=== PATIENT | male | born 1935 | race Caucasian/White ===

== ENCOUNTER 2018-12-11 18:15 | Emergency (ER) | payer MEDICARE, OTHER ==
[~2018-12-11] VITALS: Ht 175.3 cm; Wt 87.5 kg
[~2018-12-11 18:15] MED LIST: FLUSAL5005 INH; FURO20 PO; LOSA50 PO; PROSTEON TABLE1 EACH PO; TIOT18 INH; WARF2.5 PO
[2018-12-11] MEDS ORDERED: ALBU90OI61 INH (19:48)
[2018-12-11] MEDS ORDERED: ALBU2.5V5 NEB (19:48)
[2018-12-11] MEDS ORDERED: BENZ100A PO (19:50)
[2018-12-11] MEDS ORDERED: Diabetic Tussi118 ML PO (19:52)
[2018-12-11] MEDS ORDERED: AQUAPHOR99 GM TOP (19:53)
[2018-12-11] MEDS ORDERED: LOSARTAN POTAS100 MG PO (19:54)
[2018-12-11] MEDS ORDERED: MONT10T PO (19:54)
[2018-12-11] MEDS ORDERED: XARELTO15 MG PO (19:55)
[2018-12-11] MEDS ORDERED: STIOLTO RESPIMAT4 GM INH (19:56)
[2018-12-11] MEDS ORDERED: Augmentin 875-1 EACH PO (21:32)
== END 2018-12-11 21:59 | disposition home or self-care (01) ==
LOC: ER 18:15
DX: J18.1 Lobar pneumonia, unspecified organism (principal); J44.9 Chronic obstructive pulmonary disease, unspecified; I48.91 Unspecified atrial fibrillation; I10 Essential (primary) hypertension; K21.9 Gastro-esophageal reflux disease without esophagitis; E78.5 Hyperlipidemia, unspecified; Z86.711 Personal history of pulmonary embolism; G47.33 Obstructive sleep apnea (adult) (pediatric); Z79.899 Other long term (current) drug therapy
CPT/HCPCS: 71260; 96361-59; 96365-59; 99285-25; J0696; J7030; Q9967

== ENCOUNTER 2019-07-26 09:01 | Inpatient (IN) | payer OTHER, MEDICARE ==
[~2019-07-26] VITALS: Ht 177.8 cm; Wt 86.5 kg
[~2019-07-26 09:01] MED LIST changes: +ALBU2.5V5 NEB; +ALBU90OI61 INH; +AQUAPHOR99 GM TOP; +Augmentin 875-1 EACH PO; +BENZ100A PO; +Diabetic Tussi118 ML PO; +LOSARTAN POTAS100 MG PO; +MONT10T PO; +STIOLTO RESPIMAT4 GM INH; +XARELTO15 MG PO
[2019-07-26 10:00] LABS: BASOPHILS ABSOLUTE AUTO 0.05 K/mm3 (0.00-0.23); BASOPHILS PERCENT AUTO 0 % (0-2); EOSINOPHILS ABSOLUTE AUTO 0.28 K/mm3 (0.00-0.68); EOSINOPHILS PERCENT AUTO 2 % (0-6); Hematocrit 46.8 % (37.0-53.0); Hemoglobin 14.7 g/dL (13.5-17.5); IMMATURE GRAN ABSOLUTE AUTO 0.07 K/mm3 (0.00-0.10); IMMATURE GRAN PERCENT AUTO 1 % (0-1); LYMPHOCYTES ABSOLUTE AUTO 1.21 K/mm3 (0.84-5.20); LYMPHOCYTES PERCENT AUTO 8 % (21-46); MONOCYTES ABSOLUTE AUTO 1.72 K/mm3 (0.16-1.47); MONOCYTES PERCENT AUTO 12 % (4-13); Mean Corpuscular HGB 29.6 pg (26.0-34.0); Mean Corpuscular HGB Conc 31.4 g/dL (31.5-36.5); Mean Corpuscular Volume 94 fL (80-100); Mean Platelet Volume 9.9 fL (9.1-12.4); NEUTROPHILS PERCENT AUTO 77 % (41-73); Platelet Count 208 K/mm3 (150-400); RDW Coefficient Variation 15.3 % (11.7-14.2); RDW Standard Deviation 53.8 fL (35.1-46.3); Red Blood Cell Count 4.96 M/mm3 (4.30-5.90); White Blood Cell Count 14.73 K/mm3 (4.00-11.30)
[2019-07-26 10:01] LABS: Alanine Aminotransfer (ALT/SGP 28 U/L (12-78); Albumin, Blood 3.6 g/dL (3.4-5.0); Alk Phos 71 U/L (50-136); Anion Gap 6 mmol/L (6-16); Aspartate Aminotrans (AST/SGOT 23 U/L (12-37); Bilirubin, Total 1.4 mg/dL (0.1-1.0); Blood Urea Nitrogen 20 mg/dL (8-24); Bun/Creatinine Ratio 17.9 (12.0-20.0); CO2, Blood 25 mmol/L (21-32); Calcium, Blood 9.1 mg/dL (8.5-10.1); Chloride, Blood 106 mmol/L (98-108); Creatinine, Blood 1.12 mg/dL (0.60-1.20); Globulin, Blood 3.5 g/dL (2.2-4.0); Glomerular Filtration Rate >60 (60-); Glucose, Blood 97 mg/dL (70-99); Potassium, Blood 4.3 mmol/L (3.5-5.5); Sodium, Blood 137 mmol/L (136-145); Total Protein, Blood 7.1 g/dL (6.4-8.2); Troponin I <0.015 ng/mL (0.000-0.040)
[2019-07-26] MEDS ORDERED: LOSARTAN POTASS25 M2 PO (11:42)
--- NOTE | 2019-07-26 14:10 | NUR ---
PT ARRIVAL... PT ARRIVED TO UNIT VIA GURNEY. PT WAS ADMITTED FOR COPD EXAC. PT IS ON 4L NC WITH O2 SATS >91%, THIS IS PT'S BASELINE PER . PT'S VS STABLE AT THIS TIME. PT'S L/S COARSE, MOIST W/WHEEZES T/O. RR 22-24, W/ACCESSORY MUSCLE USE, PT BECOMES DYSPNIC WITH ACTIVITY. NO EDEMA IS NOTED ON ASSESSMENT. BT PRESENT AND NORMOACTIVE,ABD IS FIRM BUT NONTENDER TO PALP. IS AT THE BEDSIDE, PT HAS DEMENTIA, BED ALARM IS ON. CALL LIGHT IN REACH, WILL CONTINUE TO MONITOR.
[2019-07-26 16:34] LABS: Adenovirus Not Detected (NOT DETECT); Bordetella pertussis Not Detected (NOT DETECT); Chlamydophila pneumoniae Not Detected (NOT DETECT); Coronavirus 229E Not Detected (NOT DETECT); Coronavirus HKU1 Not Detected (NOT DETECT); Coronavirus NL63 Not Detected (NOT DETECT); Coronavirus OC43 Not Detected (NOT DETECT); Human Metapneumovirus Not Detected (NOT DETECT); Human Rhinovirus/Enterovirus Not Detected (NOT DETECT); Influenza A Not Detected (NOT DETECT); Influenza A/2009-H1 Not Detected (NOT DETECT); Influenza A/H1 Not Detected (NOT DETECT); Influenza A/H3 Not Detected (NOT DETECT); Influenza B Not Detected (NOT DETECT); Mycoplasma pneumoniae Not Detected (NOT DETECT); Parainfluenza Virus 1 Not Detected (NOT DETECT); Parainfluenza Virus 2 Not Detected (NOT DETECT); Parainfluenza Virus 3 Not Detected (NOT DETECT); Parainfluenza Virus 4 Not Detected (NOT DETECT); Respiratory Syncytial Virus Not Detected (NOT DETECT)
[2019-07-27 03:50] LABS: BASOPHILS ABSOLUTE AUTO 0.01 K/mm3 (0.00-0.23); BASOPHILS PERCENT AUTO 0 % (0-2); EOSINOPHILS PERCENT AUTO 0 % (0-6); Hematocrit 46.1 % (37.0-53.0); Hemoglobin 14.8 g/dL (13.5-17.5); IMMATURE GRAN ABSOLUTE AUTO 0.03 K/mm3 (0.00-0.10); IMMATURE GRAN PERCENT AUTO 0 % (0-1); LYMPHOCYTES ABSOLUTE AUTO 0.62 K/mm3 (0.84-5.20); LYMPHOCYTES PERCENT AUTO 8 % (21-46); MONOCYTES ABSOLUTE AUTO 0.13 K/mm3 (0.16-1.47); MONOCYTES PERCENT AUTO 2 % (4-13); Mean Corpuscular HGB 29.9 pg (26.0-34.0); Mean Corpuscular HGB Conc 32.1 g/dL (31.5-36.5); Mean Corpuscular Volume 93 fL (80-100); Mean Platelet Volume 9.8 fL (9.1-12.4); NEUTROPHILS ABSOLUTE AUTO 7.49 K/mm3 (1.96-9.15); NEUTROPHILS PERCENT AUTO 90 % (41-73); Platelet Count 189 K/mm3 (150-400); RDW Coefficient Variation 15.1 % (11.7-14.2); RDW Standard Deviation 51.6 fL (35.1-46.3); Red Blood Cell Count 4.95 M/mm3 (4.30-5.90); White Blood Cell Count 8.28 K/mm3 (4.00-11.30)
[2019-07-27 04:19] LABS: Alanine Aminotransfer (ALT/SGP 27 U/L (12-78); Albumin, Blood 3.3 g/dL (3.4-5.0); Alk Phos 65 U/L (50-136); Anion Gap 8 mmol/L (6-16); Aspartate Aminotrans (AST/SGOT 19 U/L (12-37); Bilirubin, Total 0.8 mg/dL (0.1-1.0); Blood Urea Nitrogen 25 mg/dL (8-24); Bun/Creatinine Ratio 28.5 (12.0-20.0); CO2, Blood 22 mmol/L (21-32); Calcium, Blood 8.5 mg/dL (8.5-10.1); Chloride, Blood 108 mmol/L (98-108); Creatinine, Blood 0.88 mg/dL (0.60-1.20); Globulin, Blood 3.4 g/dL (2.2-4.0); Glomerular Filtration Rate >60 (60-); Glucose, Blood 155 mg/dL (70-99); Magnesium, Blood 2.2 mg/dL (1.6-2.4); Potassium, Blood 4.4 mmol/L (3.5-5.5); Sodium, Blood 138 mmol/L (136-145); Total Protein, Blood 6.7 g/dL (6.4-8.2)
--- NOTE | 2019-07-27 06:55 | NUR ---
SHIFT SUMMARY PT HAS REMAINED ALERT AND ORIENTED TO SELF AND SURROUNDINGS ONLY THROUGHOUT THE NIGHT. PT DISORIENTED TO CURRENT DATE/TIME AND EVENT. PT DOES REORIENT WELL AND FOLLOWS DIRECTIONS. VSS. VERY PLEASANT AND COOPERATIVE WITH CARE. O2 SATURSATIONS HAVE REMAINED >90% ON 4L VIA NASAL CANNULA. PT BECOMES VERY DYSPNEIC UPON ANY EXERTION WITH LABORED, TACHYPNEIC RESPIRATIONS- PT CONTINUES TO DENY FEELING SHORT OF BREATH. O2 SATS STAY >90% THROUGH THESE EPISODES. PT CONTINUES TO USE URINAL AT BEDSIDE WITH MUCH PERSUASION TO DO SO. PT REQUESTING TO WALK TO THE RESTROOM, BUT ENCOURAGED TO USE BEDSIDE COMMODE DUE TO RESPIRATORY STATUS. PT IS RELUCTANT, BUT IS COMPLIANT. NO OTHER CHANGES NOTED FROM INITIAL ASSESSMENT. WILL CONTINUE TO MONITOR AND REPORT TO ONCOMING SHIFT RN. BED IN LOW POSITION, CALL LIGHT IN REACH. BED ALARM SET FOR SAFETY.
--- NOTE | 2019-07-27 09:06 | NUR ---
AM NOTE. ASSUMED CARE OF PT APROX 0700. PT IS A&Ox3, STATING HE KNOWS HE IS IN THE HOSPTIAL, KNOWS HE IS SICK, KNOWS HIS BUT NOT THE DATE OR THE PRESIDENT. PT WAS ADMITTED FOR COPD EXAC. PT IS ON 4 L NC WITH O2 SATS >95%, WILL TRY TO TITRATE TO BASELINE. PT DENIES CHEST PAIN/PRESSURE N/V. PT STATES THAT HE FEELS LIKE HIS BREATHING IS "NORMAL" HOWEVER PT'S STATES HE IS NOT. L/S COARSE, RHONCHI AND WHEEZES. BT PRESENT AND NORMOACTIVE. ABD IS SOFT AND NONTENDER TO PALP. CALL LIGHT IN REACH, BED IS LOCKED AND LOW WILL CONTINUE TO MONITOR
--- NOTE | 2019-07-27 17:16 | NUR ---
SHIFT SUMMARY. NO ACUTE NEGATIVE CHANGES NOTED THIS SHIFT. PT'S VS HAVE BEEN STABLE. PT DENIES PAIN. PT HAS BEEN TITRATED FROM 4L NC TO 2 L NC AND 3 W/ACTIVITY. PT'S FAMILY AND SPOUSE AT THE BEDSIDE MOST OF THE DAY. CALL LIGHT IN REACH, BED IS LOCKED AND LOW WILL CONTINUE TO MONITOR UNTIL REPORT IS GIVEN TO ONCOMING RN.
--- NOTE | 2019-07-28 07:12 | NUR ---
SHIFT SUMMARY PT HAS REMAINED ORIENTED TO SELF AND FOLLOWING DIRECTIONS THROUGHOUT THE NIGHT. PT REMAINS DISORIENTED TO DATE/TIME, EVENT AND PLACE. STATES THAT HE THINKS HE IS IN THE HOSPITAL, BUT THAT HE IS IN [place]. PT REORIENTS WELL. VSS. VERY PLEASANT AND COOPERATIVE WITH CARE. O2 SATS HAVE REMAINED >90% ON 2L VIA NASAL CANNULA AT REST AND 4L VIA NASAL CANNULA WITH ACTIVITY. HAS RESTED WELL THROUGHOUT THE NIGHT WITH HOME CPAP IN PLACE WITH 2L BLEED IN. LUNG SOUNDS REMAIN WHEEZY THROUGHOUT WITH DIMINISHED BASES. RESPIRATIONS REMAIN TACHYPNEIC AND LABORED UPON EXERTION. PT CONTINUES TO AMBULATE WITH ONE PERSON ASSIST TO BEDSIDE COMMODE AND CHAIR. NO OTHER CHANGES NOTED FROM INITIAL ASSESSMENT. WILL CONTINUE TO MONITOR AND REPORT TO ONCOMING SHIFT RN. BED IN LOW POSITION, CALL LIGHT IN REACH. BED ALARM SET FOR SAFETY.
--- NOTE | 2019-07-28 08:00 | NUR ---
INITIAL ASSESSMENT PATIENT PLEASANTLY CONFUSED. PATIENT ORIENTED TO SELF, FAMILY AND FOLLOWING DIRECTIONS. PATIENT APACHE. PATIENT FORGETFUL. HX OF DEMENTIA. AFEBRILE. 1 PERSON ASSIST. PATIENT SATTING 90% AND GREATER ON 2 L NC. BASELINE OF 2-3 L NC PER DIRECTOR OF ROTC RN REPORT. LUNGS CLEAR IN UPPER LOBES AND DIMINISHED IN LOWER LOBES. PATIENT REPORTS THAT HE IS COUGHING UP SMALL TO LARGE AMOUNTS OF THICK/ THIN SPUTUM. PATIENT IN A.FIB, HR IN THE 70S. BP STABLE. TRACE EDEMA NOTED TO BLES. ABDOMEN MILDLY DISTENDED, PATIENT REPORTS "NORMAL". ABD. SOFT, NONTENDER WITH NORMAL ACTIVE BS. WNL. SKIN IS FRAGILE AND SCATTERED BRUISES NOTED. IVS FLUSHED AND SALINE LOCKED. PATIENT DENIES PAIN OR DISCOMFORT AT THIS TIME. BED LOW, CALL LIGHT IN REACH, BED ALARM ON. WILL CONTINUE TO MONITOR PATIENT FREQUENTLY THROUGHOUT SHIFT.
--- NOTE | 2019-07-28 12:00 | NUR ---
PATIENT RESTING QUIETLY IN BED. VITAL SIGNS STABLE. NO COMPLAINTS. WILL CONTINUE TO MONITOR.
--- NOTE | 2019-07-28 16:44 | NUR ---
PATIENT RESTING QUIETLY IN BED, VISITING WITH AND FRIEND. NO COMPLAINTS. PATIENT WEARING CPAP. VITAL SIGNS STABLE. NO ACUTE CHANGES TO NOTE ON. WILL CONTINUE TO MONITOR.
--- NOTE | 2019-07-28 17:45 | NUR ---
SHIFT SUMMARY PATIENT REMAINED [place], ORIENTED ONLY TO SELF, FAMILY AND FOLLOWING DIRECTIONS. PATIENT FORGETFUL. HX OF DEMENTIA. PATIENT HAD TMAX OF 99.2 DEGREES FAHRENHEIT. PATIENT 1 PERSON ASSIST. PATIENT REMAINED SATTING 90% AND GREATER ON EITHER 2 L NC OR CPAP. PATIENT REMAINED IN A.FIB, HR 60S TO 80S. BP REMAINED STABLE. PATIENT HAD GOOD APPETITE. WNL. NO CHANGE TO SKIN. PATIENT REPOSITIONED SELF WITH REMINDERS. IVS SALINE LOCKED. PATIENT HAS NO COMPLAINTS AT THIS TIME. FAMILY IS IN ROOM VISITING FOR [place]. BED LOW, CALL LIGHT IN REACH, BED ALARM ON. WILL CONTINUE TO MONITOR UNTIL REPORT GIVEN TO ONCOMING CREAM HAULER NURSE SHORTLY.
--- NOTE | 2019-07-28 19:39 | NUR ---
alert to self and surronding but easily confused and forgetful, call light in reach, bed in low position, vsmary, stanley, handed phone from table infront of him. [place], using cpap 15 settings from home, afib 106 per pmt, will treat and medicate as prescribe
--- NOTE | 2019-07-28 23:59 | NUR ---
still confused/forgetful/cooperative keeps trying to turn off the oximizer alarm with the tv controller, continues to dstat w activity even while on cpap, declined assist w bathroom promised to call, alarm still on bed, vss, will continue to monitor and treat, no significant changes noted in medical status
--- NOTE | 2019-07-29 04:39 | NUR ---
continues to disconnect oximeter cord, reconnected and calmed pt back to sleep, bed in low position, head at desired level, will continue to monitor, treat and assist
--- NOTE | 2019-07-29 06:38 | NUR ---
remains alert at base line, very excitable/forgetful, woke up this am and was pulling his gown and everything off because he had to got to the bathroom, calmed him down and assisted him to the bsc, then helped reconnect everything currently resting quietly in bed post early am med pass, call light in reach, bed in low position, all IV's locked, remains sob upon exertion, multiple times alarm went off but most alarms r/pt moving and disconnecting oximeter, call light in reach, will continue to monitor and treat until share [facility] staff and pt
--- NOTE | 2019-07-29 12:30 | NUR ---
TRANSFER OF CARE REPORT GIVEN TO ANNE MARIE CHAPIN.
--- NOTE | 2019-07-29 12:45 | NUR ---
ASSUMED PT CARE FROM ANGELLA KENNEY
--- NOTE | 2019-07-29 15:53 | NUR ---
report to simón azar on medical floor
--- NOTE | 2019-07-29 16:13 | NUR ---
patient arrived via w/c. alert and oriented with staff. joking with staff. transfered to bed, 1 person assist. no acute issues noted.
--- NOTE | 2019-07-29 17:53 | NUR ---
SHIFT SUMMARY AT THIS TIME PATIENT IS FORGETFUL OF SAFETY AWARENESS, REORIENTS EASILY. CONVERSIVE WITH STAFF THOUGH DIFFICULT TO UNDERSTAND DUE TO MUMBLING. RT IN ROOM HELPING SET UP CPAP AND PULSE OX. ABLE TO MAKE HIS NEEDS KNOWN. DOES NOT USE CALL LIGHT, YELLS OUT FOR ASSISTANCE.
--- NOTE | 2019-07-30 04:09 | NUR ---
Shift Summary Patient slept well overnight. He wore his CPAP and maintained O2 sats without issue. He did set off his alarm twice attempting to go to the bathroom without assistance. He is somewhat forgetful, but answers orientation questions correctly except for his specific situation/medical diagnosis.
--- NOTE | 2019-07-30 13:19 | NUR ---
PATIENT RECIEVING BREATHING TREATMENTS. UP AT EDGE OF BED PLAYING CARDS. BREATHING TREATMENT AT THIS TIME.
--- NOTE | 2019-07-30 17:10 | NUR ---
SHIFT SUMMARY THIS NURSE ASSUMED CARE AT ABOUT 1600. PT SITTING UP AT SIDE OF BED PLAYING SOLITARE. PT DENIES PAIN, SOB AND NV. VSS. BED IN LOW POSITION, CALL LIGHT WITHIN REACH.
--- NOTE | 2019-07-31 04:23 | NUR ---
Shift Summary Patient slept a fair amount overnight. He has been somewhat forgetful, and he did attempt to walk to the bathroom without assistance. He denied SOB and maintained O2 sats in the low 90's on home cpap.
[2019-07-31] MEDS ORDERED: GUAI600T33 PO (14:37)
[2019-07-31] MEDS ORDERED: AZIT500 PO (14:38)
[2019-07-31] MEDS ORDERED: PRED20 PO (14:38)
[2019-07-31] MEDS ORDERED: FAMO20 PO (14:38)
--- NOTE | 2019-07-31 14:54 | NUR ---
SHIFT SUMMARY PT AWAKE DURING SHIFT REPORT THIS AM. VERY PLEASANT AND TALKATIVE, WANTING TO GO HOME. PT OOB, SETTING BED ALARM OFF GOING TO BTHRM. PT 1P SBA, NONCOMPLIANT WITH CALL LT. PT IS UNSTEADY AND REFUSES TO USE FWW. FAMILY IN TO SEE PT TODAY, WAITING FOR DR ROGER. FAMILY REPORTED PT HAS DEMENTIA AND IS STUBBORN. PLEASANT, BUT INSISTS ON DOING THINGS HIS WAY. PT'S BIOX WNL'S ON 2.5L O2. DR ROGER IN TO SEE PT, D/C ORDERS PLACED. PT'S SON REMAINED IN RM AND ASSISTED PT WITH D/C PAPERS AND BELONGINGS. PT ASSISTED TO SON'S CAR VIA W/C AND GENERAL FOREMAN. PT VERY ANXIOUS AND GRATEFUL TO GET TO GO HOME. MEDS FAXED TO [facility] PER SON AND PT REQUEST FOR TODAY. PT TO F/U AT [facility] IN 1 WEEK; VERBALIZED UNDERSTANDING.
--- NOTE | 2019-08-02 12:58 | NUR ---
requested advance directive from [place] none on file.
== END 2019-07-31 14:54 | disposition home or self-care (01) | DRG 871 ==
LOC: ER 09:01 → PCU 12:05 → MEDS 07-29 16:07
PROVIDERS: Emergency Medicine; Nurse Practitioner Acute Care; ADMIT Family Medicine
DX: A41.9 Sepsis, unspecified organism (principal); J18.9 Pneumonia, unspecified organism; J96.21 Acute and chronic respiratory failure with hypoxia; J44.0 Chronic obstructive pulmonary disease with (acute) lower respiratory infection; J44.1 Chronic obstructive pulmonary disease with (acute) exacerbation; Z99.81 Dependence on supplemental oxygen; I48.91 Unspecified atrial fibrillation; Z79.01 Long term (current) use of anticoagulants; F03.90 Unspecified dementia, unspecified severity, without behavioral disturbance, psychotic disturbance, mood disturbance, and anxiety; Z86.711 Personal history of pulmonary embolism; Z85.46 Personal history of malignant neoplasm of prostate; K21.9 Gastro-esophageal reflux disease without esophagitis; E78.5 Hyperlipidemia, unspecified; G47.33 Obstructive sleep apnea (adult) (pediatric)
CPT/HCPCS: 0099U; 36415; 71046; 80053; 83605; 83735; 83880; 84145; 84484; 85025; 87040; 93005; 93010; 94640; 94644; 94760; 94762; 96365; 97110; 97116; 97161; 97165; 97530; 97535; 99285-25; A9270; J0456; J0696; J2920; J2930; J7030; J7050; J7512

== ENCOUNTER 2019-09-08 10:32 | Inpatient (IN) | payer OTHER, MEDICARE ==
[~2019-09-08] VITALS: Ht 165.1 cm; Wt 90.7 kg
[~2019-09-08 10:32] MED LIST changes: +AZIT500 PO; +FAMO20 PO; +GUAI600T33 PO; +LOSARTAN POTASS25 M2 PO; +PRED20 PO; -XARELTO15 MG PO; +XARELTO20 MG PO
[2019-09-08 11:09] LABS: Base Excess Venous 2.2 mmol/L; Bicarbonate Venous 25.3 mmol/L (24.0-30.0); PCO2 Venous 47.1 mmHg (38-42); PO2 Venous 48.2 mmHg (38-42); pH Blood Venous 7.37 (7.34-7.37)
[2019-09-08 11:28] LABS: BASOPHILS ABSOLUTE AUTO 0.03 K/mm3 (0.00-0.23); BASOPHILS PERCENT AUTO 1 % (0-2); EOSINOPHILS ABSOLUTE AUTO 0.04 K/mm3 (0.00-0.68); EOSINOPHILS PERCENT AUTO 1 % (0-6); Hematocrit 47.9 % (37.0-53.0); Hemoglobin 15.2 g/dL (13.5-17.5); IMMATURE GRAN ABSOLUTE AUTO 0.02 K/mm3 (0.00-0.10); IMMATURE GRAN PERCENT AUTO 0 % (0-1); LYMPHOCYTES ABSOLUTE AUTO 0.47 K/mm3 (0.84-5.20); LYMPHOCYTES PERCENT AUTO 7 % (21-46); MONOCYTES ABSOLUTE AUTO 1.21 K/mm3 (0.16-1.47); MONOCYTES PERCENT AUTO 19 % (4-13); Mean Corpuscular HGB 29.4 pg (26.0-34.0); Mean Corpuscular HGB Conc 31.7 g/dL (31.5-36.5); Mean Corpuscular Volume 93 fL (80-100); Mean Platelet Volume 10.2 fL (9.1-12.4); NEUTROPHILS ABSOLUTE AUTO 4.71 K/mm3 (1.96-9.15); NEUTROPHILS PERCENT AUTO 73 % (41-73); Platelet Count 159 K/mm3 (150-400); RDW Coefficient Variation 15.7 % (11.7-14.2); RDW Standard Deviation 53.9 fL (35.1-46.3); Red Blood Cell Count 5.17 M/mm3 (4.30-5.90); White Blood Cell Count 6.48 K/mm3 (4.00-11.30)
[2019-09-08 11:41] LABS: Influenza A Negative (NEGATIVE); Influenza B Negative (NEGATIVE)
[2019-09-08 11:41] LABS: Alanine Aminotransfer (ALT/SGP 24 U/L (12-78); Albumin, Blood 3.5 g/dL (3.4-5.0); Albumin/Globulin Ratio 1.2 (0.8-1.8); Anion Gap 8 mmol/L (6-16); Aspartate Aminotrans (AST/SGOT 28 U/L (12-37); Bilirubin, Total 0.6 mg/dL (0.1-1.0); Blood Urea Nitrogen 27 mg/dL (8-24); Bun/Creatinine Ratio 21.1 (12.0-20.0); CO2, Blood 26 mmol/L (21-32); Calcium, Blood 8.9 mg/dL (8.5-10.1); Chloride, Blood 105 mmol/L (98-108); Creatinine, Blood 1.28 mg/dL (0.60-1.20); Globulin, Blood 2.9 g/dL (2.2-4.0); Glomerular Filtration Rate 57 (60-); Glucose, Blood 101 mg/dL (70-99); Potassium, Blood 3.7 mmol/L (3.5-5.5); Sodium, Blood 139 mmol/L (136-145); Total Protein, Blood 6.4 g/dL (6.4-8.2)
[2019-09-08] MEDS ORDERED: BENZ100A PO (11:42)
[2019-09-08] MEDS ORDERED: XARELTO15 M1 PO (11:43)
[2019-09-08 11:44] LABS: Alk Phos 55 U/L (50-136); Troponin I <0.015 ng/mL (0.000-0.040)
[2019-09-08] MEDS ORDERED: OLOP.1OPSO BOTHEYES (11:44)
[2019-09-08] MEDS ORDERED: STIOLTO RESPIMAT4 GM INH (12:32)
--- NOTE | 2019-09-08 16:41 | NUR ---
PATIENT ARRIVED TO THE UNIT VIA STRETCHER. VERY SHORT OF BREATH ON 4L O2 AT THIS TIME. PATIENT 1 PERSON ASSIST TO BED. BED ALARM IN PLACE, YELLOW FALL SOCKS IN PLACE. CALL LIGHT IN REACH.
--- NOTE | 2019-09-08 18:06 | NUR ---
SHIFT SUMMARY PATIENT ADMITTED TO THE FLOOR WITH . HE HAS MINIMAL CONFUSION AT BASELINE. SHOWING TO BE FORGETFUL OF FALL PRECAUTIONS, REQURING BED ALARM TO BE ON. REEDUCATED ABOUT USE OF CALL LIGHT AND ASKING FOR ASSISTANCE TO THE BATHROO. SOB WITH EXERTION. O2 IN PLACE. RT INVOLVED.
[2019-09-09 01:08] LABS: Source, Urine Clean Catch
[2019-09-09 01:10] LABS: Bilirubin, Urine Neg (Neg); Blood, Urine 1+ (Neg); Glucose Qualitative, Urine 1+ (Neg); Ketones, Urine Neg (Neg); Leukocyte Esterase, Urine Neg (Neg); Nitrite, Urine Neg (Neg); Protein, Urine 1+ (Neg); Urobilinogen, Urine NORM (Normal)
[2019-09-09 01:22] LABS: Appearance, Urine Clear (Clear); Bacteria Not Seen /hpf; Color, Urine Yellow (P-Yellow); Red Blood Cells, Urine Rare /hpf (0-2); Squamous Epithelial Cells Few /hpf (Few); White Blood Cells, Urine Rare /hpf (0-5)
[2019-09-09 05:00] LABS: BASOPHILS PERCENT AUTO 0 % (0-2); EOSINOPHILS PERCENT AUTO 0 % (0-6); Hematocrit 43.1 % (37.0-53.0); IMMATURE GRAN ABSOLUTE AUTO 0.01 K/mm3 (0.00-0.10); IMMATURE GRAN PERCENT AUTO 0 % (0-1); LYMPHOCYTES ABSOLUTE AUTO 0.39 K/mm3 (0.84-5.20); LYMPHOCYTES PERCENT AUTO 9 % (21-46); MONOCYTES ABSOLUTE AUTO 0.16 K/mm3 (0.16-1.47); MONOCYTES PERCENT AUTO 4 % (4-13); Mean Corpuscular HGB 29.5 pg (26.0-34.0); Mean Corpuscular HGB Conc 32.5 g/dL (31.5-36.5); Mean Corpuscular Volume 91 fL (80-100); Mean Platelet Volume 9.9 fL (9.1-12.4); NEUTROPHILS ABSOLUTE AUTO 3.78 K/mm3 (1.96-9.15); NEUTROPHILS PERCENT AUTO 87 % (41-73); Platelet Count 132 K/mm3 (150-400); RDW Coefficient Variation 15.3 % (11.7-14.2); RDW Standard Deviation 51.6 fL (35.1-46.3); Red Blood Cell Count 4.74 M/mm3 (4.30-5.90); White Blood Cell Count 4.34 K/mm3 (4.00-11.30)
[2019-09-09 05:17] LABS: Alanine Aminotransfer (ALT/SGP 27 U/L (12-78); Albumin, Blood 3.2 g/dL (3.4-5.0); Alk Phos 52 U/L (50-136); Anion Gap 9 mmol/L (6-16); Aspartate Aminotrans (AST/SGOT 33 U/L (12-37); Bilirubin, Total 0.4 mg/dL (0.1-1.0); Blood Urea Nitrogen 28 mg/dL (8-24); Bun/Creatinine Ratio 28.9 (12.0-20.0); CO2, Blood 22 mmol/L (21-32); Calcium, Blood 7.9 mg/dL (8.5-10.1); Chloride, Blood 106 mmol/L (98-108); Creatinine, Blood 0.97 mg/dL (0.60-1.20); Globulin, Blood 3.3 g/dL (2.2-4.0); Glomerular Filtration Rate >60 (60-); Glucose, Blood 134 mg/dL (70-99); Potassium, Blood 4.1 mmol/L (3.5-5.5); Sodium, Blood 137 mmol/L (136-145); Total Protein, Blood 6.5 g/dL (6.4-8.2)
--- NOTE | 2019-09-09 05:27 | NUR ---
SHIFT SUMMARY PT AWAKE MUCH OF THE NIGHT. CALLED FREQUENTLY FOR RANDOM THINGS. HAD A DIFFICULT TIME WITH LINES AND BEING HOOKED TO MEDICAL EQUIPMENT, BECOME TANGLED FREQUENTLY. PT UP SBA W/ FWW TO RESTROOM, HOWEVER, PT DID BECOME VERY SOB WITH AMBULATION TO THE RESTROOM. REMAINED ON 4 L THROUGHOUT THE NIGHT WITH O2 SATS IN THE LOW TO MID 90'S. LUNG SOUNDS WHEEZY THROUGHOUT. BREATHING TX'S PER RT THROUGH THE NIGHT. PT HAS DRY COUGH, DID NOT PRODUCE ENOUGH SPUTUM THIS EVENING TO SEND A SAMPLE. PT ORIENTED TO SELF, PLACE, AND SITUATION. WAS UNSURE OF DATE. FORGETFUL AT TIMES. DID SET OFF BED ALARM A COUPLE TIMES. RESPIRATIONS HIGH ESPECIALLY AFTER EXERTION. PT SLEEPING AT THIS TIME AFTER BEING AWAKE MOST OF THE NIGHT. WILL CONTINUE TO MONITOR.
[2019-09-09] MEDS ORDERED: CALCIUM CARBON500 M3 PO (13:26)
[2019-09-09] MEDS ORDERED: HYDR454TO TOP (13:27)
[2019-09-09] MEDS ORDERED: IBUP400 PO (13:27)
--- NOTE | 2019-09-09 14:17 | NUR ---
Spiritual care visit conducted. patient is sitting on a chair and alert. Patient immediately gets tearful when I walk in the room and tells me that he is going to have to stay another day in the hospital. This is the only time in a very lengthy conversation that patient is tearful. We spend the rest of our conversation talking about his 27 years in the [employer], about the many countries he has been to as well as all 50 states and about his early Jehovah'S Witness experiences. 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 I listen empathically, begin to establish therapeutic alliance, hear confession and provide a calming presence and companionship. I will continue to remain available to patient and family
--- NOTE | 2019-09-09 18:28 | NUR ---
PT IS PLESANT AND COOPERATIVE. PT HAS SOME CONFUSION. HE IS RECIEVING IV ANTIBIOTICS. HIS WAS AT BEDSIDE THIS AFTERNOON. HE IS EATING AND DRINKING WELL. HE IS WORKING WITH RT AND HIS LUNG SOUNDS ARE COARSE.
--- NOTE | 2019-09-10 05:32 | NUR ---
SHIFT SUMMARY PT HAS RESTED OFF AND ON THIS SHIFT, VERY CONFUSED. DEMENTIA AT BASELINE, BUT PLESANT. A/OX1. PT IS IMPULSIVE AND JUMPS OOB FREQUENTLY T/O SHIFT. PLASTIC PARTS DESIGNER NOTIFIED OF THE NEED FOR SCU PLACMENT. BED ALARM IN PLACE FOR SAFETY. HE HAS DENIED PAIN. LUNG SOUNDS TIGHT AND COURSE UPON AUSCULATION. MOIST PRODUCTIVE COUGH. 4L O2 IN PLACE. TREATMENTS PER RT. IV SOLUMEDROL PER ORDERS. VITALS STABLE. BED IN LOWEST POSITION, CALL LIGHT WITHIN REACH. WILL CONTINUE TO MONITOR AND REPORT TO ONCOMING RN.
--- NOTE | 2019-09-10 17:15 | NUR ---
SHIFT SUMMARY- PT IS ALERT, PLESANT AND COOPERATIVE. HE HAS INTERMITENT CONFUSION AND IS IMPULSIVE, BED ALARM IS ON. HIS LUNG SOUNDS ARE COARSE. RT WORKING WITH PT, NOTED LUNG SOUNDS WERE WET DURING THIS AFTERNOON TREATMENT. NOTIFIED CARE PROVIDER, ORDERED ONE TIME DOSE OF 40MG IV LASIX. PT WILL RECIEVE AND ECHO TOMORROW. HE IS EATING AND DRINKING WELL. HIS WAS AT THE BEDSIDE OFF AND ON THROUGHOUT THIS SHIFT.
--- NOTE | 2019-09-10 19:29 | NUR ---
REPORT RECEIVED FROM ANNE MARIE PETERSON; PT WHEEZING THROUGHOUT WHILE SITTING SIDE OF BED; ALERT AND ORIENTED X 2; ABLE TO FOLLOW ALL SIMPLE VERBAL COMMANDS; RESPIRATORY THERAPY AT SIDE FOR EVALUATION; BED ALARM APPLIED.
--- NOTE | 2019-09-11 04:38 | NUR ---
SHIFT SUMMARY: 84 Y/O MALE HAD RESTLESS SHIFT AT TIMES; LUNG SOUNDS ARE COARSE THROUGHOUT WITH OCCASIONAL NON PRODUCTIVE COUGH; PT HAS INCREASED DYSPNEA NOT WITH VERY SLIGHT ACTIVITY WITH O2 SATS 91% AT REST AND 87% WITH ACTIVITY; DENIES PAIN OR NAUSEA; ALERT AND ORIENTED X 2; BED ALARM APPLIED, BED LOW POSITION WITH CALL LIGHT AT SIDE.
--- NOTE | 2019-09-11 07:00 | NUR ---
ASSUMED CARE OF PT- BEDSIDE REPORT COMPLETED WITH NIGHT ANNE MARIE PATEL. PER REPORT PT HAS HAD NO ACUTE CHANGE BUT CONTINUES TO BE SOB WITH EVEN THE SMALLEST EXERTION. PT CURRENTLY ON 6L VIA NC. PT IS IMPULSIVE AND REFUSES TO USE THE URINAL. PT BECOMES VERY SOB WHEN GOING TO THE BATHROOM AND TAKES A LONG TIME TO RECOVER. WILL ATTEMPT TO GET PT TO USE BSC TODAY TO PREVENT INCREASED INCIDENCE OF DYSPNEA.
--- NOTE | 2019-09-11 11:28 | NUR ---
echocardiogram complete
--- NOTE | 2019-09-11 17:17 | NUR ---
SHIFT SUMMARY- PT O2 SATS MAINTAIN WHILE AWAKE AND AT REST WITH 5L VIA NC IF HE TAKES A NAP WITHOUT THE CPAP THEN O2 REQUIREMENTS INCREASE TO 6L. WITH ACTIVITY O2 REQUIREMENTS INCREASE TO A MINIMUM OF 7L VIA NC. PT ON CONTINUOUS BIOX SATS STAYING 88-92%. PT HAS COPD AND Hx OF LL LOBECTOMY. PT HAS ACTIVITY INTOLLERANCE AT THIS TIME USEING THE BEDSIDE COMODE RESULTS IN SATS IN THE MID 80'S AT 7L VIA NC. PT HAS DENIED PAIN T/O THE SHIFT WITH THE EXCEPTION OF A SORE THROAT, SPOKE TO ABOUT THE SORE THROAT NEW ORDER FOR CEPACOL LOZENGES Q4P. WILL PASS ON IN REPORT TO NIGHT RN.
--- NOTE | 2019-09-11 19:33 | NUR ---
REPORT RECEIVED FROM HILDA KENNEY, RESTING COMFORTABLY IN BED WHILE WEARING O2 AT 3L/M PER NASAL CANNULA.
--- NOTE | 2019-09-12 04:59 | NUR ---
SHIFT SUMMARY: 84 Y/O MALE HAD RESTED COMFORTABLY ALL SHIFT; PT CONTINUES TO HAVE DYSPNEA WITH VERY SLIGHT ACTIVITY WHICH TRIGGERS IMMEDIATE DESATURATIONS OF OXYGEN LEVELS FROM 91% TO LOW 80% WHILE WEARING O2 AT 5L/M PER NASAL CANNULA; PT RECEIVED NEBULIZER TREATMENTS VIA RESPIRATORY THERAPY THROUGHOUT NIGHT PRN; PTS LUNG SOUNDS ARE VERY COARSE THROUGHOUT; ALERT AND ORIENTED X 2; ABLE TO FOLLOW ALL SIMPLE VERBAL COMMANDS; DENIES PAIN OR NAUSEA; BED LOW POSITION WITH CALL LIGHT AT SIDE; PT UTILIZED BSC THIS SHIFT.
[2019-09-12 05:29] LABS: Base Excess Venous 5.1 mmol/L; Bicarbonate Venous 28.9 mmol/L (24.0-30.0); PCO2 Venous 36.2 mmHg (38-42); PO2 Venous 74.3 mmHg (38-42)
[2019-09-12 05:33] LABS: Hematocrit 48.1 % (37.0-53.0); Hemoglobin 15.2 g/dL (13.5-17.5); Mean Corpuscular HGB 29.2 pg (26.0-34.0); Mean Corpuscular HGB Conc 31.6 g/dL (31.5-36.5); Mean Corpuscular Volume 93 fL (80-100); Mean Platelet Volume 9.7 fL (9.1-12.4); Platelet Count 144 K/mm3 (150-400); RDW Coefficient Variation 15.3 % (11.7-14.2); RDW Standard Deviation 52.8 fL (35.1-46.3)
[2019-09-12 05:51] LABS: Anion Gap 6 mmol/L (6-16); Blood Urea Nitrogen 30 mg/dL (8-24); Bun/Creatinine Ratio 32.5 (12.0-20.0); CO2, Blood 27 mmol/L (21-32); Chloride, Blood 102 mmol/L (98-108); Creatinine, Blood 0.92 mg/dL (0.60-1.20); Glomerular Filtration Rate >60 (60-); Glucose, Blood 140 mg/dL (70-99); Potassium, Blood 4.6 mmol/L (3.5-5.5); Sodium, Blood 135 mmol/L (136-145)
[2019-09-12 05:58] LABS: BAND PERCENT MAN 1 % (0-8); BASOPHILS PERCENT MAN 0 % (0-2); EOSINOPHILS PERCENT MAN 0 % (0-6); LYMPHOCYTES % ATYPICAL MANUAL 1 % (0-0); LYMPHOCYTES PERCENT MAN 12 % (21-46); MONOCYTES ABSOLUTE MAN 0.74 K/mm3 (0.16-1.47); MONOCYTES PERCENT MAN 8 % (4-13); NEUTROPHILS ABSOLUTE MAN 7.34 K/mm3 (1.96-9.15); SEG NEUTROPHILS PERCENT MAN 78 % (41-73); TOTAL CELLS COUNTED 100
--- NOTE | 2019-09-12 15:45 | NUR ---
Initial palliative care consult: Vinay is an 84 year old who was admitted with pneumonia and COPD exacerbation. He has a history of COPD with home O2 use of 3 l/min 24 hours a day. He also has sleep apnea (he uses a CPAP at night), chronic hypoxic resp. failure, dementia, pulmonatry HTN, HTN, a-fib, prostate cancer and GERD. His , Wm, is at the bedside and provides some of the history. Vinay is A/O x4 during during the visit today. Vinay and Wm have been 57 years and have raised 7 kids and just finished raising a great grandson. They live alone and Wm takes care of most of the home chores. She cooks, cleans, drives, pays the bills and assists Vinay with dressing as needed. Vinay is able to shower himself and occasionally helps out with small tasks around the house. He is able to feed himself. Wm reports he mostly sits in his chair and enjoys watching TV. Vinay has a scooter at home for when he goes outside of their house. He also has two walkers and a cane and he prefers his cane. They have two children who live locally who can offer assistance when needed. Wm states that she feels confident that she has the resources at home to be able to care for Vinay at this time. Brought up the conversation of planning ahead for when Vinay's dementia advances and he starts to require more care. Wm stated "I don't want to think about that, so I don't." Vinay reports his breathing is getting better. Wm agrees and states he isn't confused like he was in the last few days. He still has some wheezing and will desat to 86-87% on 6 l/min when he ambulated into the bathroom. It took him a few minutes for his sats to recover after going to the bathroom. He has a cough that is occasionally productive. He has no other complaints. Most of the visit was spent working with Vinay and Wm to fill out POLST and AD forms for each of them. Wm states they have considered filling them out before, but she states "I don't like to do paperwork." Offered to help assist them with these forms and they were very grateful. Explained the AD and POLST forms in great detail and answered questions. Wm plans to take hers to her PCP to have them sign it. Spoke with Dr. Romo and changed pt's code status to DNR to match his wishes. His is in agreement with his choice for DNR with limited interventions. Dr. Romo stated he will sign POLST form in pt's room when he makes rounds. PC will follow up with Vinay and Wm tomorrow for symptom management and to check to see if the forms have all been signed.
--- NOTE | 2019-09-12 17:17 | NUR ---
SHIFT SUMMARY- PT ALERT AND ORIENTED TODAY. A LITTLE FORGETFUL, HAS TO BE REMINDED OF HIS ACTIVITY INTOLLERANCE. PT HAS DENIED ANY PAIN TODAY. PALLIATIVE CARE CAME IN TO SEE THE PT, CODE STATUS CHANGED TO DNR PER PT REQUEST. DNR BAND IN PLACE VERIFIED WITH RN ANGELLA GUZMÁN FROM PALLIATIVE CARE AND RN IZABELLA STRONG. PT STILL HAS ACTIVITY INTOLLERANCE AND O2 REQUIREMENTS ARE STILL HIGH (7L VIA HIGH FLOW NC). PT IS A 1PA FOR ACTIVITIES D/T O2 REQUIREMENTS. PT DOES NOT CALL APPROPRIATELY AND SO BED ALARM IS USED FOR PT SAFETY. FAMILY IS OFTE AT THE BEDSIDE. PT DID HIS OWN SPOUNGE BATH TODAY SITTING ON THE COMMODE. O2 SATS WERE 87-89 ON 7L AT THAT TIME. PT SEEMS TO BE IN GOOD SPIRITS AND HAS NO S&S OF DISTRESS NOTED AT THID TIME WILL CTM AND PASS ON IN REPORT TO NIGHT RN.
[2019-09-13 05:05] LABS: Hematocrit 52.3 % (37.0-53.0); Hemoglobin 16.7 g/dL (13.5-17.5); Mean Corpuscular HGB 29.7 pg (26.0-34.0); Mean Corpuscular HGB Conc 31.9 g/dL (31.5-36.5); Mean Corpuscular Volume 93 fL (80-100); Mean Platelet Volume 9.8 fL (9.1-12.4); Platelet Count 187 K/mm3 (150-400); RDW Coefficient Variation 15.7 % (11.7-14.2); RDW Standard Deviation 52.9 fL (35.1-46.3); Red Blood Cell Count 5.63 M/mm3 (4.30-5.90); White Blood Cell Count 10.41 K/mm3 (4.00-11.30)
--- NOTE | 2019-09-13 05:13 | NUR ---
SHIFT SUMMARY- PT. A&O BUT FORGETFUL. PT. SOB W/EXERTION AND DESATS IN THE 80'S WITH ACTIVITY. O2 AT 6L VIA NC AND CONT OXIMETRY IN PLACE. PT. SLEPT ON/OFF DURING THE NIGHT WITH CPAP ON. NO APPARENT DISTRESS NOTED. PT. DOES NOT CALL APPROPRIATELY, IMPULSIVE AT TIMES. PT. INSTRUCTED TO CALL NURSE FOR BATHROOM ASSISTANCE, PT. VERBALIZED UNDERSTANDING. DENIED ANY PAIN OR DISCOMFORT T/O THE SHIFT. CALL LIGHT WITHIN REACH, SIDE RAILS UP X2, AND BED ALARM ON FOR SAFETY. WILL CONT TO MONITOR.
[2019-09-13 05:23] LABS: Anion Gap 6 mmol/L (6-16); Blood Urea Nitrogen 29 mg/dL (8-24); Bun/Creatinine Ratio 32.4 (12.0-20.0); CO2, Blood 31 mmol/L (21-32); Calcium, Blood 8.2 mg/dL (8.5-10.1); Chloride, Blood 98 mmol/L (98-108); Glomerular Filtration Rate >60 (60-); Glucose, Blood 126 mg/dL (70-99); Potassium, Blood 4.1 mmol/L (3.5-5.5); Sodium, Blood 135 mmol/L (136-145)
[2019-09-13 05:50] LABS: BAND PERCENT MAN 2 % (0-8); BASOPHILS PERCENT MAN 0 % (0-2); EOSINOPHILS PERCENT MAN 0 % (0-6); LYMPHOCYTES % ATYPICAL MANUAL 2 % (0-0); LYMPHOCYTES ABSOLUTE MAN 1.56 K/mm3 (0.84-5.20); LYMPHOCYTES PERCENT MAN 13 % (21-46); MONOCYTES ABSOLUTE MAN 0.52 K/mm3 (0.16-1.47); MONOCYTES PERCENT MAN 5 % (4-13); NEUTROPHILS ABSOLUTE MAN 8.32 K/mm3 (1.96-9.15); SEG NEUTROPHILS PERCENT MAN 78 % (41-73); TOTAL CELLS COUNTED 100
--- NOTE | 2019-09-13 08:00 | NUR ---
PT PLEASANT COOP A/O X2 CONCRETE. KNOWS SELF AND FAM. DETAILS ARE HARDER. ABLE TO TELL ME AND AGE. NOT SURE DATE. DEMIES PAIN. H/R IRREG, HX AFIB. NO TELE. LUNGS COARSE T/O. RESP EASY, UNLABORED. ON 6L O2. BT X4 LAST BM THIS AM PER PT. VOIDS PER BSC. SBA TO INDEPENDANT. SOMEWHAT IMPULSIVE. BED IN LOW POSITION, CALL LITE IN REACH, CALLS APPROP
--- NOTE | 2019-09-13 09:45 | NUR ---
Met with Wm at Vinay's bedside this morning. Vinay is sleeping soundly. No concerns or requests. Will plan to return to complete AD when PC volunteer is here. Wm is agreeable with plan.
--- NOTE | 2019-09-13 12:43 | NUR ---
SPOKE TO DR GINA ANNE BP. STATES WILL REVIEW
--- NOTE | 2019-09-13 19:16 | NUR ---
PT HAS BEEN PLEASANT TODAY. A/O X2-3. IN ROOM SOME OF DAY. SUGGESTED DECEMBER D/C TOMORROW. REMAINS IND TO BSC. CALLS APPROP. LUNGS MORE WHEEZY THAN COARSE THIS AFT. REMAINS ON 6L O2. ADDITIOINAL BLOOD PRESSURE MEDS STARTED TODAY PER DR UMANA. NO OTHER CONCERNS AT THIS TIME. BED IN LOW POSITION, CALL LITE IN REACH, CALLS APPROP.
--- NOTE | 2019-09-14 05:14 | NUR ---
SHIFT SUMMARY- NO ACUTE EVENTS OVERNIGHT. PT. PLEASANT AND COOPERATIVE WITH CARE. SLEPT ON/OFF T/O THE SHIFT. ON 4L OF O2 WITH SATS IN THE LOW 90'S. PT. DOES DESAT WITH ACTIVITY AND VERY SOB WITH EXERTION. PRODUCTIVE COUGH AND LUNGS COARSE. PT. ANTICIPATING D/C TO HOME TODAY. DENIES ANY PAIN. CALL LIGHT WITHIN REACH AND SIDE RAILS UP X2. WILL CONT TO MONITOR.
--- NOTE | 2019-09-14 06:49 | NUR ---
late entry for 09/13/19 at 1500: Pt and completed their ADs. POLST form signed per Dr. Romo. Copies of AD and POLST form sent to [facility]. [place] form also faxed to [place] POLST Registry. Originals of POLST and both ADs given to pt's to take home.
--- NOTE | 2019-09-14 07:50 | NUR ---
PT A/O X2-3. KNOWS SEASON, BUT NOT DATE. KNOWS FAMILY, WHY HERE, AT HOSP. THAT EXPECT D.C TODAY. KNOWS PRESIDENT. HARD TO BRING FORWARD SOME DETAILS. DENIES PAIN. HEART IRREG, HX AFIB. NO TELE. LUNGS COARSE AND WHEEZY T/O ON 4L O2 N/C. RESP EASY, UNLABORED, TALKS MUCH, NO SOB. SOB WITH EXERTION. RECOVERS QUICKLY. BT X4 LAST BM YEST. VOIDS SBA TO INDEPENDANT BSC. FAMILY AT BEDSIDE DURING MUCH OF DAY. BED IN LOW POSITION, CALL LITE IN REACH, CALLS APPROP
--- NOTE | 2019-09-14 16:33 | NUR ---
CALLED DR UMANA RE HIGH DIASTOLIC RATES. STATES HAS REVIEWED, IS OKAY. NO NEW ORDERS
--- NOTE | 2019-09-14 16:35 | NUR ---
PT PLEASANT TODAY. DID NOT GO HOME. EXPECTS TOMORROW. PT RESTING AT THIS TIME. EYES CLOSED, TV ON, RESP EASY, UNLABORED. DID NOT AWAKEN. BED IN LOW POSITION, CALL LITE IN REACH, CALLS APPROP
--- NOTE | 2019-09-15 05:31 | NUR ---
SHIFT SUMMARY- NO ACUTE EVENTS OVERNIGHT. PT. SLEPT ON/OFF DURING THE NIGHT. NO APPARENT DISTRESS NOTED. PT. ON 4L OF O2 VIA NC, SATS IN THE LOW 90'S. PLAN FOR D/C TO HOME TODAY. CALL LIGHT WITHIN REACH AND SIDE RAILS UP X2. WILL CONT TO MONITOR.
--- NOTE | 2019-09-15 13:58 | NUR ---
SHIFT SUMMARY PT AWAKE DURING SHIFT REPORT, NO C/O. PT PLEASANT AND CHEERFUL WANTING TO GO HOME TODAY. DR OLIVA IN TO SEE PT THIS AM. PT ON 4L NC AT 96%. O2 DECREASED TO 3L PER DR OLIVA; BIOX REMAINS IN MID 90'S AT REST. REPORTED PT USES 3L HOME O2 AT BASELINE. LUNGS T/O WITH RHONCHI AND SCATTERED WHEEZES. PT PLACED ON PO PREDNISONE TODAY. P/T AND O/T EVAL ORDERED FOR DECONDITIONING. PT ABLE TO WALK TO END OF MULLER AND BACK WITH THERAPY. PT DESATS TO 89-90% AFTER AMBUALTION. PT ABLE TO WALK INTO BTHRM USING FWW AND SBA WITH TUBING. PT ENCOURAGED TO USE FLUTTER VALVE THRU OUT THE DAY. WET NPC. DENIED PAIN. DENIED NEEDS. CALL LT IN REACH. RETURNED TO RM AFTER LUNCH.
--- NOTE | 2019-09-16 04:15 | NUR ---
SHIFT SUMMARY PATIENT SLIGHTLY FORGETFUL HE WOULD OCCASIONALLY TRY TO GET OUT OF BED WITHOUT USING HIS CALL LIGHT. IV PATENT AND FLUSHED. BED IN LOWEST POSITION WITH WHEELS LOCKED AND ALARM ON. CALL LIGHT WITHIN REACH. REPORT GIVEN TO ONCOMING RN.
--- NOTE | 2019-09-16 18:08 | NUR ---
ALERT. USES CALL LIGHT APPROPRIATELY. UPSET NOT GOING HOME TODAY. AMBULATED W/THERAPY IN HALLWAY W/SATS LOW 90'S. COOPERATIVE. PLEASANT. OXYGEN 5LPM HUMDIFIED. WCTM
--- NOTE | 2019-09-17 04:45 | NUR ---
SHIFT SUMMARY PATIENT ALERT. FORGOT TO USE HIS CALL LIGHT A COUPLE TIMES WHEN GETTING UP TO USE THE BATHROOM. WAS ABLE TO SLEEP MOST OF THE NIGHT. IV PATENT AND FLUSHED. BED IN LOWEST POSITION WITH WHEELS LOCKED. CALL LIGHT WITHIN REACH. REPORT GIVEN TO ONCSHANAE KENNEY.
[2019-09-17] MEDS ORDERED: BUDE.25 NEB (13:07)
[2019-09-17] MEDS ORDERED: Prednisone10 MG PO (13:09)
[2019-09-17] MEDS ORDERED: OMEP20ER PO (13:09)
--- NOTE | 2019-09-17 13:31 | NUR ---
REVIEW D'C WITH S.O. AWARE 2 RX AT [facility]. AWARE XARELTO DOSE HAS CHANGED. 2 APPTS MADE--ONE FOR V.A. AND ONE FOR RECREATIONAL SPECIALIST. PATIENT WILL BE OUT OF TOWN FROM NEXT TO END OF , SO RECREATIONAL SPECIALIST FOR NEXT FRIDAY AND PCP FOR NEXT MONTH W/BLUE TEAM Kristie ANSWER ALL QUESTIONS. IN W/C W/ESCORT.
== END 2019-09-17 13:34 | disposition home health service (06) | DRG 193 ==
LOC: ER 10:32 → MEDS 12:42
PROVIDERS: Emergency Medicine; Internal Medicine; Nurse Practitioner Acute Care; ADMIT Internal Medicine
DX: J18.9 Pneumonia, unspecified organism (principal); J96.21 Acute and chronic respiratory failure with hypoxia; N17.9 Acute kidney failure, unspecified; I48.20 Chronic atrial fibrillation, unspecified; E87.1 Hypo-osmolality and hyponatremia; F03.91 Unspecified dementia, unspecified severity, with behavioral disturbance; F05 Delirium due to known physiological condition; E87.3 Alkalosis; J43.9 Emphysema, unspecified; Z85.46 Personal history of malignant neoplasm of prostate; Z86.711 Personal history of pulmonary embolism; Z90.2 Acquired absence of lung [part of]; Z99.81 Dependence on supplemental oxygen; I10 Essential (primary) hypertension; I27.20 Pulmonary hypertension, unspecified; K21.9 Gastro-esophageal reflux disease without esophagitis; Z79.01 Long term (current) use of anticoagulants; G47.33 Obstructive sleep apnea (adult) (pediatric); Z87.891 Personal history of nicotine dependence; E86.0 Dehydration
CPT/HCPCS: 36415; 71045; 71046; 80048; 80053; 81001; 82803; 83605; 83735; 83880; 84145; 84484; 85025; 87040; 87070; 87205; 87804; 93005; 93010; 93306; 94640; 94660; 94664; 94667; 94668; 94760; 94762; 96365; 96367; 96375; 97116; 97162; 97165; 97530; 98960; 99285-25; A9270; A9270-GY; J0456; J0692; J0696; J1940; J2930; J7030; J7050; J7512; J7626

== ENCOUNTER 2020-07-16 09:32 | Emergency (ER) | payer MEDICARE, OTHER ==
[~2020-07-16] VITALS: Ht 170.2 cm; Wt 95.2 kg
[~2020-07-16 09:32] MED LIST changes: +BUDE.25 NEB; +CALCIUM CARBON500 M3 PO; +HYDR454TO TOP; +IBUP400 PO; +OLOP.1OPSO BOTHEYES; +OMEP20ER PO; +Prednisone10 MG PO; +XARELTO15 M1 PO
[2020-07-16 09:58] LABS: BASOPHILS ABSOLUTE AUTO 0.08 K/mm3 (0.00-0.23); BASOPHILS PERCENT AUTO 1 % (0-2); EOSINOPHILS ABSOLUTE AUTO 0.44 K/mm3 (0.00-0.68); EOSINOPHILS PERCENT AUTO 3 % (0-6); Hematocrit 49.6 % (37.0-53.0); Hemoglobin 15.5 g/dL (13.5-17.5); IMMATURE GRAN ABSOLUTE AUTO 0.07 K/mm3 (0.00-0.10); IMMATURE GRAN PERCENT AUTO 1 % (0-1); LYMPHOCYTES ABSOLUTE AUTO 2.78 K/mm3 (0.84-5.20); LYMPHOCYTES PERCENT AUTO 19 % (21-46); MONOCYTES ABSOLUTE AUTO 1.24 K/mm3 (0.16-1.47); MONOCYTES PERCENT AUTO 9 % (4-13); Mean Corpuscular HGB 30.9 pg (26.0-34.0); Mean Corpuscular HGB Conc 31.3 g/dL (31.5-36.5); Mean Corpuscular Volume 99 fL (80-100); Mean Platelet Volume 9.7 fL (9.1-12.4); NEUTROPHILS PERCENT AUTO 68 % (41-73); Platelet Count 249 K/mm3 (150-400); RDW Coefficient Variation 14.5 % (11.7-14.2); RDW Standard Deviation 52.7 fL (35.1-46.3); Red Blood Cell Count 5.02 M/mm3 (4.30-5.90); White Blood Cell Count 14.41 K/mm3 (4.00-11.30)
[2020-07-16 10:16] LABS: Alanine Aminotransfer (ALT/SGP 26 U/L (12-78); Albumin, Blood 3.7 g/dL (3.4-5.0); Albumin/Globulin Ratio 1.1 (0.8-1.8); Alk Phos 51 U/L (50-136); Anion Gap 6 mmol/L (6-16); Aspartate Aminotrans (AST/SGOT 23 U/L (12-37); Bilirubin, Total 0.8 mg/dL (0.1-1.0); Blood Urea Nitrogen 28 mg/dL (8-24); Bun/Creatinine Ratio 23.3 (12.0-20.0); CO2, Blood 27 mmol/L (21-32); Chloride, Blood 107 mmol/L (98-108); Globulin, Blood 3.5 g/dL (2.2-4.0); Glomerular Filtration Rate >60 (60-); Glucose, Blood 106 mg/dL (70-99); Potassium, Blood 4.3 mmol/L (3.5-5.5); Sodium, Blood 140 mmol/L (136-145); Total Protein, Blood 7.2 g/dL (6.4-8.2); Troponin I <0.015 ng/mL (0.000-0.040)
[2020-07-16 10:54] LABS: PCO2 Arterial 44.9 mmHg (35-45); PO2 Arterial 138 mmHg (80-100); pH Blood Arterial 7.39 (7.35-7.45)
[2020-07-16 11:25] LABS: Influenza A, PCR Negative (NEGATIVE); Influenza B, PCR Negative (NEGATIVE); Resp Syncytial Virus, PCR Negative (NEGATIVE); SARS-Cov-2 (COVID-19) PCR, MMC Negative (NEGATIVE)
[2020-07-16] MEDS ORDERED: Prednisone20 MG PO (12:57)
[2020-07-16] MEDS ORDERED: ALBU2.5V5 INH (12:57)
[2020-07-16] MEDS ORDERED: AMOCLA875 PO (12:57)
== END 2020-07-16 13:18 | disposition home or self-care (01) ==
LOC: ER 09:32
PROVIDERS: Emergency Medicine
DX: J44.1 Chronic obstructive pulmonary disease with (acute) exacerbation (principal); I10 Essential (primary) hypertension; K21.9 Gastro-esophageal reflux disease without esophagitis; I48.91 Unspecified atrial fibrillation; Z20.828 Contact with and (suspected) exposure to other viral communicable diseases; Z79.899 Other long term (current) drug therapy; Z79.52 Long term (current) use of systemic steroids; Z79.01 Long term (current) use of anticoagulants; Z87.891 Personal history of nicotine dependence
CPT/HCPCS: 0241U; 36415; 36600; 71045; 80053; 82803; 83880; 84484; 85025; 85379; 93005; 93010; 94644; 96374; 99285-25; J2930

== ENCOUNTER 2020-08-18 13:32 | Emergency (ER) | payer MEDICARE, OTHER ==
[~2020-08-18] VITALS: Ht 170.2 cm; Wt 90.7 kg
[~2020-08-18 13:32] MED LIST changes: +ALBU2.5V5 INH; +AMOCLA875 PO; +Prednisone20 MG PO
[2020-08-18 14:31] LABS: BASOPHILS ABSOLUTE AUTO 0.04 K/mm3 (0.00-0.23); BASOPHILS PERCENT AUTO 0 % (0-2); EOSINOPHILS ABSOLUTE AUTO 0.13 K/mm3 (0.00-0.68); EOSINOPHILS PERCENT AUTO 1 % (0-6); Hemoglobin 15.7 g/dL (13.5-17.5); IMMATURE GRAN ABSOLUTE AUTO 0.05 K/mm3 (0.00-0.10); IMMATURE GRAN PERCENT AUTO 0 % (0-1); LYMPHOCYTES PERCENT AUTO 13 % (21-46); MONOCYTES ABSOLUTE AUTO 0.93 K/mm3 (0.16-1.47); MONOCYTES PERCENT AUTO 8 % (4-13); Mean Corpuscular HGB 30.8 pg (26.0-34.0); Mean Corpuscular Volume 96 fL (80-100); Mean Platelet Volume 9.5 fL (9.1-12.4); NEUTROPHILS ABSOLUTE AUTO 9.33 K/mm3 (1.96-9.15); NEUTROPHILS PERCENT AUTO 78 % (41-73); Platelet Count 276 K/mm3 (150-400); RDW Coefficient Variation 13.5 % (11.7-14.2); RDW Standard Deviation 48.5 fL (35.1-46.3); Red Blood Cell Count 5.09 M/mm3 (4.30-5.90); White Blood Cell Count 11.98 K/mm3 (4.00-11.30)
[2020-08-18 14:51] LABS: Alanine Aminotransfer (ALT/SGP 30 U/L (12-78); Albumin, Blood 3.7 g/dL (3.4-5.0); Albumin/Globulin Ratio 1.1 (0.8-1.8); Alk Phos 48 U/L (50-136); Anion Gap 4 mmol/L (6-16); Aspartate Aminotrans (AST/SGOT 24 U/L (12-37); Bilirubin, Total 0.7 mg/dL (0.1-1.0); Blood Urea Nitrogen 37 mg/dL (8-24); CO2, Blood 30 mmol/L (21-32); Calcium, Blood 8.9 mg/dL (8.5-10.1); Chloride, Blood 102 mmol/L (98-108); Creatinine, Blood 1.12 mg/dL (0.60-1.20); Globulin, Blood 3.3 g/dL (2.2-4.0); Glomerular Filtration Rate >60 (60-); Glucose, Blood 97 mg/dL (70-99); Potassium, Blood 4.8 mmol/L (3.5-5.5); Sodium, Blood 136 mmol/L (136-145); Troponin I <0.015 ng/mL (0.000-0.040)
[2020-08-18] MEDS ORDERED: ALBU90OI INH (15:44)
[2020-08-18] MEDS ORDERED: Prednisone50 MG PO (15:44)
== END 2020-08-18 16:13 | disposition home or self-care (01) ==
LOC: ER 13:32
PROVIDERS: Emergency Medicine
DX: J44.1 Chronic obstructive pulmonary disease with (acute) exacerbation (principal); I10 Essential (primary) hypertension; I48.91 Unspecified atrial fibrillation; K21.9 Gastro-esophageal reflux disease without esophagitis; Z79.01 Long term (current) use of anticoagulants; Z79.899 Other long term (current) drug therapy; Z79.52 Long term (current) use of systemic steroids; Z86.711 Personal history of pulmonary embolism; Z87.891 Personal history of nicotine dependence
CPT/HCPCS: 36415; 71045; 80053; 83880; 84484; 85025; 93005; 93010; 94640; 99285-25; J7512

== ENCOUNTER 2020-12-09 09:52 | Observation (INO) | payer OTHER, MEDICARE ==
[~2020-12-09] VITALS: Ht 180.3 cm; Wt 86.5 kg
[~2020-12-09 09:52] MED LIST changes: +ALBU90OI INH; +Prednisone50 MG PO
[2020-12-09 10:52] LABS: BASOPHILS ABSOLUTE AUTO 0.02 K/mm3 (0.00-0.23); BASOPHILS PERCENT AUTO 0 % (0-2); EOSINOPHILS ABSOLUTE AUTO 0.08 K/mm3 (0.00-0.68); EOSINOPHILS PERCENT AUTO 1 % (0-6); Hematocrit 49.4 % (37.0-53.0); Hemoglobin 15.9 g/dL (13.5-17.5); IMMATURE GRAN ABSOLUTE AUTO 0.02 K/mm3 (0.00-0.10); IMMATURE GRAN PERCENT AUTO 0 % (0-1); LYMPHOCYTES ABSOLUTE AUTO 1.57 K/mm3 (0.84-5.20); LYMPHOCYTES PERCENT AUTO 20 % (21-46); MONOCYTES ABSOLUTE AUTO 0.82 K/mm3 (0.16-1.47); MONOCYTES PERCENT AUTO 10 % (4-13); Mean Corpuscular HGB 30.2 pg (26.0-34.0); Mean Corpuscular HGB Conc 32.2 g/dL (31.5-36.5); Mean Corpuscular Volume 94 fL (80-100); Mean Platelet Volume 10.3 fL (9.1-12.4); NEUTROPHILS PERCENT AUTO 69 % (41-73); Platelet Count 214 K/mm3 (150-400); RDW Coefficient Variation 13.5 % (11.7-14.2); RDW Standard Deviation 46.4 fL (35.1-46.3); Red Blood Cell Count 5.27 M/mm3 (4.30-5.90); White Blood Cell Count 8.01 K/mm3 (4.00-11.30)
[2020-12-09 11:05] LABS: Alanine Aminotransfer (ALT/SGP 29 U/L (12-78); Albumin, Blood 3.4 g/dL (3.4-5.0); Albumin/Globulin Ratio 0.9 (0.8-1.8); Alk Phos 45 U/L (50-136); Anion Gap 7 mmol/L (6-16); Aspartate Aminotrans (AST/SGOT 52 U/L (12-37); Bilirubin, Total 0.6 mg/dL (0.1-1.0); Blood Urea Nitrogen 19 mg/dL (8-24); CO2, Blood 25 mmol/L (21-32); Calcium, Blood 9.2 mg/dL (8.5-10.1); Chloride, Blood 104 mmol/L (98-108); Creatinine, Blood 0.95 mg/dL (0.60-1.20); Globulin, Blood 3.6 g/dL (2.2-4.0); Glomerular Filtration Rate >60 (60-); Glucose, Blood 113 mg/dL (70-99); Magnesium, Blood 2.3 mg/dL (1.6-2.4); Potassium, Blood 4.2 mmol/L (3.5-5.5); Sodium, Blood 136 mmol/L (136-145)
[2020-12-09] MEDS ORDERED: XARELTO15 M1 PO (14:51)
[2020-12-09] MEDS ORDERED: DALIRESP250 MCG PO (14:51)
[2020-12-09] MEDS ORDERED: PRED5 PO (14:52)
[2020-12-10 04:51] LABS: Anion Gap 10 mmol/L (6-16); Blood Urea Nitrogen 20 mg/dL (8-24); Bun/Creatinine Ratio 23.1 (12.0-20.0); CO2, Blood 24 mmol/L (21-32); Calcium, Blood 9.1 mg/dL (8.5-10.1); Chloride, Blood 103 mmol/L (98-108); Creatinine, Blood 0.86 mg/dL (0.60-1.20); Glomerular Filtration Rate >60 (60-); Glucose, Blood 150 mg/dL (70-99); Sodium, Blood 137 mmol/L (136-145)
--- NOTE | 2020-12-10 06:00 | NUR ---
PT RESTLESS AND CONFUSED T/O NOC. MINIMAL AMOUNT OF SLEEP. CONFUSION INCREASED AFTER DARK. IMPULSIVE AND CLIMBING OUT OF BED CONTINUOUSLY. EXTREMELY SOB W/ EXERTION BUT QUICKLY RECOVERS W/ VERBAL COACHING. O2 3L N/C. USING BSC PT BECOMES HYPOXIC W/ 10FT AMBULATION TO BR. FLUIDS THICKENED BUT PT COUGHS OCCASIONALLY WITH DRINKING. MEDS GIVEN W/ APPLESAUCE.BED ALARM ON. CALL LIGHT WITHIN REACH
--- NOTE | 2020-12-10 08:23 | NUR ---
NURSING PCU DAYSHIFT: Assumed care of pt at approx 0700. Alert, confused, follows some commands though mostly impulsive and can be difficult to redirect, pleasant. Ambulates w/SBA, steady on feet. Skin is fragile w/no breakdown noted. Denies any pain/discomfort. Tele in place, afib, no c/o CP/pressure, SBP 120's, rate 80-90's at rest and 110-120 w/exertion, no noted edema. 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 Abd SNT, BT+, reported received of voiding w/o difficulty, attends in place. No s/s of acute distress at this time. Bed/chair alarms set for safety and frequently alarm d/t impulsiveness. Pt denies any current needs. Call light in reach though pt unable to use appropriately. Awaiting for rounding from PMD, cont to monitor for any changes.
--- NOTE | 2020-12-10 10:30 | NUR ---
ASSUMED CARE OF PT FROM KALPANA KENNEY.
[2020-12-10] MEDS ORDERED: PRED20 PO (12:24)
[2020-12-10] MEDS ORDERED: AZIT250 PO (12:25)
--- NOTE | 2020-12-10 12:40 | NUR ---
PT DISCHARGED HOME WITH VIA WHEELCHAIR. ALL DISCHARGE INFORMATION REVIEWED WITH PT'S , INCLUDING EDUCATION, MEDICATION LIST AND FOLLOW UP APPOINTMENT. HAS NO QUESTIONS OR CONCERNS, VERBALIZES UNDERSTANDING OF PRINTED DISCHARGE INFORMATION. ALL BELONGINGS SENT HOME WITH PT. IV TO R FA REMOVED, CATHETER INTACT SITE WNL. NO FURTHER DISCHARGE NEEDS IDENTIFIED AT THIS TIME.
== END 2020-12-10 12:45 | disposition home or self-care (01) ==
LOC: ER 09:52 → PCU 09:53
PROVIDERS: Emergency Medicine; Family Medicine; ADMIT Internal Medicine
DX: J96.01 Acute respiratory failure with hypoxia (principal); J44.1 Chronic obstructive pulmonary disease with (acute) exacerbation; I10 Essential (primary) hypertension; I48.91 Unspecified atrial fibrillation; F03.90 Unspecified dementia, unspecified severity, without behavioral disturbance, psychotic disturbance, mood disturbance, and anxiety; G47.33 Obstructive sleep apnea (adult) (pediatric); Z87.891 Personal history of nicotine dependence; Z91.19 Patient's noncompliance with other medical treatment and regimen; Z99.81 Dependence on supplemental oxygen
CPT/HCPCS: 36415; 71045; 80048; 80053; 83735; 83880; 85025; 93005; 93010; 94640; 94660; 94762; 96374; 99285-25; A9270; G0378; J2930; J7512

== ENCOUNTER 2021-09-17 15:33 | Inpatient (IN) | payer OTHER, MEDICARE ==
[~2021-09-17] VITALS: Ht 170.2 cm; Wt 83.5 kg
[~2021-09-17 15:33] MED LIST changes: +AZIT250 PO; +DALIRESP250 MCG PO; +PRED5 PO; +STIOLTO RESPIMAT4 G1 INH
[2021-09-17 16:16] LABS: BASOPHILS ABSOLUTE AUTO 0.02 K/mm3 (0.00-0.23); BASOPHILS PERCENT AUTO 0 % (0-2); EOSINOPHILS PERCENT AUTO 0 % (0-6); Hematocrit 52.1 % (37.0-53.0); Hemoglobin 16.6 g/dL (13.5-17.5); IMMATURE GRAN ABSOLUTE AUTO 0.12 K/mm3 (0.00-0.10); IMMATURE GRAN PERCENT AUTO 1 % (0-1); LYMPHOCYTES ABSOLUTE AUTO 0.76 K/mm3 (0.84-5.20); LYMPHOCYTES PERCENT AUTO 4 % (21-46); MONOCYTES ABSOLUTE AUTO 0.89 K/mm3 (0.16-1.47); MONOCYTES PERCENT AUTO 5 % (4-13); Mean Corpuscular HGB 30.2 pg (26.0-34.0); Mean Corpuscular HGB Conc 31.9 g/dL (31.5-36.5); Mean Corpuscular Volume 95 fL (80-100); NEUTROPHILS PERCENT AUTO 90 % (41-73); Platelet Count 201 K/mm3 (150-400); RDW Coefficient Variation 15.1 % (11.7-14.2); Red Blood Cell Count 5.49 M/mm3 (4.30-5.90); White Blood Cell Count 18.49 K/mm3 (4.00-11.30)
[2021-09-17 16:32] LABS: Albumin, Blood 3.6 g/dL (3.4-5.0); Albumin/Globulin Ratio 1.2 (0.8-1.8); Bilirubin, Total 0.6 mg/dL (0.1-1.0); Bun/Creatinine Ratio 29.5 (12.0-20.0); Calcium, Blood 8.5 mg/dL (8.5-10.1); Creatinine, Blood 1.32 mg/dL (0.60-1.20); Globulin, Blood 3.1 g/dL (2.2-4.0); Potassium, Blood 4.4 mmol/L (3.5-5.5); Total Protein, Blood 6.7 g/dL (6.4-8.2)
[2021-09-17 17:10] LABS: Influenza A, PCR NEGATIVE (NEGATIVE); Influenza B, PCR NEGATIVE (NEGATIVE); Resp Syncytial Virus, PCR NEGATIVE (NEGATIVE); SARS-Cov-2 (COVID-19) PCR, MMC NEGATIVE (NEGATIVE)
--- NOTE | 2021-09-18 05:12 | NUR ---
PT HAD A 3 SECOND PAUSE WITH A RATE 61, AFIB
[2021-09-18 06:10] LABS: BASOPHILS ABSOLUTE AUTO 0.01 K/mm3 (0.00-0.23); BASOPHILS PERCENT AUTO 0 % (0-2); EOSINOPHILS PERCENT AUTO 0 % (0-6); Hematocrit 54.1 % (37.0-53.0); Hemoglobin 17.1 g/dL (13.5-17.5); IMMATURE GRAN ABSOLUTE AUTO 0.08 K/mm3 (0.00-0.10); IMMATURE GRAN PERCENT AUTO 1 % (0-1); LYMPHOCYTES ABSOLUTE AUTO 1.03 K/mm3 (0.84-5.20); LYMPHOCYTES PERCENT AUTO 6 % (21-46); MONOCYTES PERCENT AUTO 2 % (4-13); Mean Corpuscular HGB 29.6 pg (26.0-34.0); Mean Corpuscular HGB Conc 31.6 g/dL (31.5-36.5); Mean Corpuscular Volume 94 fL (80-100); Mean Platelet Volume 9.8 fL (9.1-12.4); NEUTROPHILS ABSOLUTE AUTO 15.05 K/mm3 (1.96-9.15); NEUTROPHILS PERCENT AUTO 91 % (41-73); Platelet Count 184 K/mm3 (150-400); RDW Standard Deviation 52.1 fL (35.1-46.3); Red Blood Cell Count 5.77 M/mm3 (4.30-5.90); White Blood Cell Count 16.47 K/mm3 (4.00-11.30)
--- NOTE | 2021-09-18 06:23 | NUR ---
SHIFT SUMMARY PT IS ALERT WITH SOME CONFUSION. THERE HAVE BEEN NO ACUTE CHANGES. PT USED BIPAP T/O THE NIGHT WITH /8 30%FIO2 SATS ABOVE 90%. THIS MORNING HE IS ON 4L NC. PT DENIES PAIN. PT HAS ORDERS OF NPO DUE TO BIPAP, THIS NURSE ATTEMPTED SWALLOW EVAL WITH SPOON OF WATER AND PT COUGHED AND SOUNDED WET ON 2ND SPOONFUL. WATER WILL BE HELD FOR NOW, PT AGREED. PT HAS BEEN UP TO THE BSC SEVERAL TIME T/O THE NIGHT AND IS IMPULSIVE. BED ALARM HAS BEEN ACTIVE. THIS MORNING HE IS IN CHAIR WITH TAB ALARM. CALL LIGHT IS WITHIN REACH.
[2021-09-18 06:28] LABS: Albumin, Blood 3.6 g/dL (3.4-5.0); Albumin/Globulin Ratio 1.1 (0.8-1.8); Bun/Creatinine Ratio 31.1 (12.0-20.0); Calcium, Blood 8.9 mg/dL (8.5-10.1); Creatinine, Blood 1.22 mg/dL (0.60-1.20); Globulin, Blood 3.4 g/dL (2.2-4.0); Potassium, Blood 4.2 mmol/L (3.5-5.5)
[2021-09-18] MEDS ORDERED: CALCIUM CIT 311 EAC7 PO (09:28)
[2021-09-18 10:26] LABS: Source, Urine Clean Catch
[2021-09-18 10:37] LABS: Appearance, Urine Clear (Clear); Bilirubin, Urine Neg (Neg); Blood, Urine Neg (Neg); Glucose Qualitative, Urine Neg (Neg); Ketones, Urine Neg (Neg); Leukocyte Esterase, Urine Neg (Neg); Nitrite, Urine Neg (Neg); Protein, Urine Neg (Neg); Urobilinogen, Urine NORM (Normal)
[2021-09-18 10:40] LABS: Color, Urine Pale Yellow (P-Yellow)
--- NOTE | 2021-09-18 16:22 | NUR ---
SHIFT SUMMARY PT ALERT AND ORIENTED TO SELF, PLACE, AND FOLLOWING DIRECTIONS. PT CONFUSED AT TIMES, BUT AT BASELINE PER . HAS BEEN AT BEDSIDE TO HELP WITH CARE. VS STABLE. HR AFIB 60'S. O2 SATS HAVE REMAINED ABOVE 90% ON 3L NC ALL SHIFT. BIPAP HAS NOT BEEN USED THIS SHIFT. PT FAILED ST EVAL, AND REMAINS NPO AT THIS TIME. PT ABLE TO TRANSFER SHORT DISTANCE WITH 1 ASSIST AND GB FWW. WILL CONTINUE TO MONITOR AND REPORT TO ONCOMING RN
--- NOTE | 2021-09-19 05:51 | NUR ---
SHIFT SUMMARY PT CONFUSED. ALERT TO SELF AND . BED ALARM/TAB ALARM IN PLACE. HR STABLE. BP STABLE. OXYGEN SATURATION MAINTAINED ABOVE 94% ON 3 L VIA NC. DYSPNEA WITH EXERTION. PT WORE BIPAP AT TIMES DURING SHIFT. REMOVING BIPAP AND REFUSING AT TIMES. PT CURRENTLY UP IN CHAIR WITH ALARM SET. PT PULLED OUT IV. PT ABLE TO TURN SELF IN BED. PT REQUESTING ICE FOR SHOULDER. ICE APPLIED. WILL CONT TO MONITOR UNTIL REPORT GIVEN TO MAXIMILIANO KENNEY.
--- NOTE | 2021-09-19 15:24 | NUR ---
Shift note: Pt is alert, but confused. Pt has history of dementia. Pt was very anxious this morning and kept getting up out of chair. Pt Wm came in and sat with pt and assisted with needs/cares [id number] and was very helpful in keeping pt calm. IV lasix and steriod continued per orders. VSS on 3L, which is the patients baseline. Pt had barium swallow done today and WET PAN OPERATOR added diet in for pt based on recommendations from study. Pt can only take in thin liquids with spoon and needs to take small bites/sips and has order for bite size food and pills in applesauce whole. Tele: afib 80-90s today. Sputum sample was sent to lab.
--- NOTE | 2021-09-19 18:45 | NUR ---
Pt has been anxious and agitated since spouse left. notified and prn [email or web address] added, will give once pharmacy verifies.
--- NOTE | 2021-09-20 00:21 | NUR ---
UPDATE PT AGGITATED AND CONT TO ATTEMPT TO GET OUT OF CHAIR AND BED. PT CONFUSED, NOT ABLE TO DIRECT. PHYSICIAN NOTIFIED. SEE EHR FOR ORDERS.
[2021-09-20 04:09] LABS: BASOPHILS ABSOLUTE AUTO 0.07 K/mm3 (0.00-0.23); BASOPHILS PERCENT AUTO 0 % (0-2); EOSINOPHILS ABSOLUTE AUTO 0.01 K/mm3 (0.00-0.68); EOSINOPHILS PERCENT AUTO 0 % (0-6); Hemoglobin 18.6 g/dL (13.5-17.5); IMMATURE GRAN ABSOLUTE AUTO 0.35 K/mm3 (0.00-0.10); IMMATURE GRAN PERCENT AUTO 1 % (0-1); LYMPHOCYTES ABSOLUTE AUTO 0.56 K/mm3 (0.84-5.20); LYMPHOCYTES PERCENT AUTO 2 % (21-46); MONOCYTES ABSOLUTE AUTO 2.53 K/mm3 (0.16-1.47); MONOCYTES PERCENT AUTO 7 % (4-13); Mean Corpuscular HGB Conc 32.3 g/dL (31.5-36.5); Mean Corpuscular Volume 93 fL (80-100); NEUTROPHILS PERCENT AUTO 90 % (41-73); Platelet Count 235 K/mm3 (150-400); RDW Coefficient Variation 15.1 % (11.7-14.2); RDW Standard Deviation 51.4 fL (35.1-46.3); Red Blood Cell Count 6.19 M/mm3 (4.30-5.90); White Blood Cell Count 35.42 K/mm3 (4.00-11.30)
[2021-09-20 04:16] LABS: Hematocrit 57.6 % (37.0-53.0)
[2021-09-20 04:41] LABS: Bun/Creatinine Ratio 51.7 (12.0-20.0); Calcium, Blood 9.1 mg/dL (8.5-10.1); Creatinine, Blood 1.49 mg/dL (0.60-1.20); Potassium, Blood 3.9 mmol/L (3.5-5.5)
--- NOTE | 2021-09-20 05:26 | NUR ---
SHIFT SUMMARY PT ALERT TO SELF AND FAMILY. PT VERY AGGITATED AT TIMES. NOT DIRECTABLE. CONT TO ATTEMPT TO GET OUT OF BED. PHYSICIAN AWARE. ORDERS FOR YODIT VEST AND MEDICATED PER EMAR. NO CP OR PRESSURE REPORTED. HR STABLE. BP STABLE. OXYGEN SATURATION MAINTAINED ABOVE 92% ON 3-4 L VIA NC. PT ABLE TO TURN SELF IN BED. PT ABLE TO INFORM STAFF WHEN NEEDING TO VOID. PT 2 PERSON ASSIST TO COMMODE W/GAIT BELT AND WALKER. PT REFUSING BIPAP DURING NIGHT AT TIMES. PT CURRENLTY SLEEPING. WILL CONT TO MONITOR UNTIL REPORT GIVEN TO DAYSHIFT RN.
--- NOTE | 2021-09-20 19:04 | NUR ---
Pt remains A&Ox1- to self, requires frequent reorientation, continually pulling at lines/tubing. VSS. Afebrile. C/o L shoulder pain- Tylenol x1 and xray taken. Tolerating current diet. Frequent rounds to ensure pt safety. Pt repositioned q2hrs and pressure points offloaded to prevent pressure ulcers. Pt in no apparent distress. Will continue to monitor until transfer of care to oncoming RN.
--- NOTE | 2021-09-21 03:06 | NUR ---
UPDATE PT'S HR INCREASED TO 120'S-130'S. HR SUSTAINING AT THIS RATE. PHSYICIAN NOTIFIED. ORDERS TO GIVE 10 MG IV CARDIZEM NOW. IF HR SUSTAINS HIGH GIVE SECOND DOSE OF 10 MG OF CARDIZEM IV. WILL CONT TO MONITOR.
[2021-09-21 04:00] LABS: BASOPHILS ABSOLUTE AUTO 0.12 K/mm3 (0.00-0.23); BASOPHILS PERCENT AUTO 0 % (0-2); EOSINOPHILS ABSOLUTE AUTO 0.01 K/mm3 (0.00-0.68); EOSINOPHILS PERCENT AUTO 0 % (0-6); Hematocrit 53.3 % (37.0-53.0); IMMATURE GRAN PERCENT AUTO 3 % (0-1); LYMPHOCYTES PERCENT AUTO 1 % (21-46); MONOCYTES ABSOLUTE AUTO 2.69 K/mm3 (0.16-1.47); MONOCYTES PERCENT AUTO 6 % (4-13); Mean Corpuscular HGB 29.7 pg (26.0-34.0); Mean Corpuscular HGB Conc 31.9 g/dL (31.5-36.5); Mean Corpuscular Volume 93 fL (80-100); Mean Platelet Volume 9.7 fL (9.1-12.4); NEUTROPHILS ABSOLUTE AUTO 37.67 K/mm3 (1.96-9.15); NEUTROPHILS PERCENT AUTO 89 % (41-73); Platelet Count 164 K/mm3 (150-400); RDW Coefficient Variation 15.2 % (11.7-14.2); RDW Standard Deviation 51.6 fL (35.1-46.3); Red Blood Cell Count 5.73 M/mm3 (4.30-5.90); White Blood Cell Count 42.09 K/mm3 (4.00-11.30)
[2021-09-21 04:17] LABS: Anion Gap 8 mmol/L (6-16); Blood Urea Nitrogen 74 mg/dL (8-24); Bun/Creatinine Ratio 64.9 (12.0-20.0); CO2, Blood 28 mmol/L (21-32); Calcium, Blood 8.6 mg/dL (8.5-10.1); Chloride, Blood 104 mmol/L (98-108); Creatinine, Blood 1.14 mg/dL (0.60-1.20); Glomerular Filtration Rate >60 (60-); Glucose, Blood 175 mg/dL (70-99); Magnesium, Blood 2.5 mg/dL (1.6-2.4); Potassium, Blood 4.2 mmol/L (3.5-5.5); Sodium, Blood 140 mmol/L (136-145)
--- NOTE | 2021-09-21 05:53 | NUR ---
SHIFT SUMMARY PT ALERT TO SELF AND FAMILY. PT AGGITATED AT TIMES. MEDICATED PER EMAR. PT IN YODIT VEST D/T PT CONT TO GET OUT OF BED AND NOT DIRECTABLE. PT BECAME AGGITATED STATING HE NEEDED TO USE BATHROOM. PT ORIGINALLY A 2 PERSON ASSIST WITH WALKER AND GAIT BELT. THIS RN, ANOTHER RN, AND TOLL RELIEF OPERATOR AT BEDSIDE ATTEMPTING TO ASSIST PT TO COMMODE USING WALKER AND GAIT BELT. PT TOO WEAK AT THIS TIME. PT'S HR INCREASED TO 150'S. PT BECAME SOB. PT LAID BACK TO BED, BIPAP PUT BACK ON PT AND PHYSICIAN NOTIFIED PT'S HR SUSTAINED 120'S-150'S. ORDERS PROVIDED, SEE EMAR. HR CURRENLTY IN 90'S. BP STABLE. HR STABLE. NO CP OR PRESSURE REPORTED T/O SHIFT. OXYGEN SATURATION MAINTAINED ABOVE 92% ON 3-4 L VIA NC OR ON BIPAP. SEE EHR FOR BIPAP SETTINGS. BED ALARM ON. WILL CONT TO MONITOR UNTIL REPORT GIVEN TO DAYSHIFT RN.
[2021-09-21 10:44] LABS: PCO2 Arterial 41.9 mmHg (35-45); PO2 Arterial 76.3 mmHg (80-100)
--- NOTE | 2021-09-21 17:19 | NUR ---
Update: MD notified regarding increase SBP throughout shift- PRN ordered.
--- NOTE | 2021-09-21 17:22 | NUR ---
Pt remains A&Ox1-self, requires frequent reorientation. VSS with exception to afternoon SBP, PRN ordered. Afebrile. No c/o pain. AUO. BM x1. Tolerating current diet. Frequent rounds to ensure pt safety. Pt repositioned q2hrs and pressure points offloaded to prevent pressure ulcers. Pt in no apparent distress at this time. Will continue to monitor until transfer of care to oncoming RN.
[2021-09-22 03:43] LABS: BASOPHILS ABSOLUTE AUTO 0.16 K/mm3 (0.00-0.23); BASOPHILS PERCENT AUTO 0 % (0-2); EOSINOPHILS PERCENT AUTO 0 % (0-6); Hemoglobin 17.7 g/dL (13.5-17.5); IMMATURE GRAN ABSOLUTE AUTO 1.33 K/mm3 (0.00-0.10); IMMATURE GRAN PERCENT AUTO 4 % (0-1); LYMPHOCYTES ABSOLUTE AUTO 0.39 K/mm3 (0.84-5.20); LYMPHOCYTES PERCENT AUTO 1 % (21-46); MONOCYTES ABSOLUTE AUTO 2.28 K/mm3 (0.16-1.47); MONOCYTES PERCENT AUTO 6 % (4-13); Mean Corpuscular HGB 30.8 pg (26.0-34.0); Mean Corpuscular HGB Conc 31.4 g/dL (31.5-36.5); Mean Platelet Volume 10.8 fL (9.1-12.4); NEUTROPHILS ABSOLUTE AUTO 33.41 K/mm3 (1.96-9.15); NEUTROPHILS PERCENT AUTO 89 % (41-73); Platelet Count 143 K/mm3 (150-400); RDW Coefficient Variation 15.5 % (11.7-14.2); RDW Standard Deviation 56.8 fL (35.1-46.3); Red Blood Cell Count 5.75 M/mm3 (4.30-5.90); White Blood Cell Count 37.57 K/mm3 (4.00-11.30)
[2021-09-22 03:49] LABS: Hematocrit 56.4 % (37.0-53.0); Mean Corpuscular Volume 98 fL (80-100)
[2021-09-22 04:01] LABS: Albumin, Blood 2.3 g/dL (3.4-5.0); Anion Gap 6 mmol/L (6-16); Blood Urea Nitrogen 64 mg/dL (8-24); Bun/Creatinine Ratio 56.1 (12.0-20.0); CO2, Blood 26 mmol/L (21-32); Calcium, Blood 8.7 mg/dL (8.5-10.1); Chloride, Blood 109 mmol/L (98-108); Creatinine, Blood 1.14 mg/dL (0.60-1.20); Glomerular Filtration Rate >60 (60-); Glucose, Blood 196 mg/dL (70-99); Phosphorus, Blood 3.1 mg/dL (2.5-4.9); Potassium, Blood 4.6 mmol/L (3.5-5.5); Sodium, Blood 141 mmol/L (136-145)
--- NOTE | 2021-09-22 05:42 | NUR ---
PAINT AND TABLE EDGER SUMMARY PT ALERT AND ORIENTED TO SELF AND FAMILY. VSS. YODIT VEST RESTRAINST IN PLACE. PT ON BIPAP TOLERATING WELL. PT GIVEN THIN LIQUID VIA SPOON, CONCERN FOR ASPIRATION. PRN DOSE OF LOBETALOL ADMINISTERED FOR HTN . BED ALARM ON , CALL LIGHT WITHIN REACH AND SIDE RAIL UP X 3.
--- NOTE | 2021-09-22 18:37 | NUR ---
Pt remains confused- requires frequent reorientation. VSS. No c/o pain. Afebrile. AUO. BM x2. Failed bedside swallow eval- NPO order placed. Pending palliative care consult to discuss advance care planning. and 2 dtrs updated regarding POC. Abx adjusted. Frequent rounds to ensure pt safety. Pt repositioned q2hrs and pressure points offloaded to prevent pressure ulcers. Pt in no apparent distress at this time. Will continue to monitor until transfer of care to oncoming RN.
[2021-09-23 03:19] LABS: Hematocrit 53.2 % (37.0-53.0); Hemoglobin 16.7 g/dL (13.5-17.5); Mean Corpuscular HGB 30.1 pg (26.0-34.0); Mean Corpuscular HGB Conc 31.4 g/dL (31.5-36.5); Mean Corpuscular Volume 96 fL (80-100); Mean Platelet Volume 10.8 fL (9.1-12.4); Platelet Count 144 K/mm3 (150-400); RDW Coefficient Variation 15.4 % (11.7-14.2); RDW Standard Deviation 55.6 fL (35.1-46.3); Red Blood Cell Count 5.54 M/mm3 (4.30-5.90); White Blood Cell Count 24.02 K/mm3 (4.00-11.30)
[2021-09-23 03:36] LABS: Anion Gap 3 mmol/L (6-16); Blood Urea Nitrogen 70 mg/dL (8-24); Bun/Creatinine Ratio 69.3 (12.0-20.0); CO2, Blood 32 mmol/L (21-32); Calcium, Blood 8.8 mg/dL (8.5-10.1); Chloride, Blood 112 mmol/L (98-108); Creatinine, Blood 1.01 mg/dL (0.60-1.20); Glomerular Filtration Rate >60 (60-); Glucose, Blood 200 mg/dL (70-99); Potassium, Blood 4.3 mmol/L (3.5-5.5); Sodium, Blood 147 mmol/L (136-145)
--- NOTE | 2021-09-23 06:40 | NUR ---
PT ALERT AND ORIENTED TO SELF AND FAMILY. PT NPO , ALL MEDS CRUSHED GIVEN WITH APPLE SAUSE. YODIT VEST RESTRAINTS IN PLACE. PT ON BIPAP AT NIGHT , 3-4 L DURING DAY. ON TELE AFIB. VSS PER OCT. PT PENDING PALLIATIVE CONSULT.BED ALARM ON. CALL LIGHT WITHIN REACH AND SIDE UP X3.
--- NOTE | 2021-09-23 09:09 | NUR ---
ASSUMED CARE OF PATIENT AT APPROX 0700. SPO2 86-90% ON 4L O2 VIA NC, TITRATED TO 5L O2 VIA NC SPO2 90-95%. LS COARSE/DIM T/O. RESP RATE 18-22. PT RESTING IN BED DURING SHIFT, REPOSITIONED Q2. PT ALERT, ORIENTED TO PERSON/SELF AND FAMILY. PT REQUESTING WATER THIS AM, ORAL Q4 AND PRN. PT DENIES PAIN, CHEST PAIN, NASUEA AND DIZZINESS. TELE AFIB 80'S, BP STABLE. VSS. NO OTHER ACUTE CHANGES. NOTED. WILL CONTINUE TO MONITOR UNTIL REPORT GIVEN TO ONCOMING RN.
--- NOTE | 2021-09-23 11:40 | NUR ---
PT FOUND WITH NC OFF, SPO2 86-87%; REPLACED NC, SPO2 95-96%, TITRATED TO 4L O2 VIA NC.
--- NOTE | 2021-09-23 16:48 | NUR ---
SHIFT SUMMARY NO S/SX OF DISTRESS NOTED DURING SHIFT. PT STARTED ON PPN THIS EVENING. PT CONTINUES TO YODIT VEST. ORAL CARE Q2-4HR. ELEVATED BP THIS EVENING, MEDICATED WITH LABETALOL. OTHER VSS. NO OTHER ACUTE CHANGES NOTED. WILL CONTINUE TO MONITOR UNTIL REPORT GIVEN TO ONCOMING RN.
--- NOTE | 2021-09-23 22:35 | NUR ---
CARE ASSUMPTION PT IS AXO TO SELF AND IS AWARE OF HIS . PT'S SPEECH IS VERY GARBLED AND DIFFICULT TO UNDERSTAND. O2 SATS >90% ON 4L NC AND WILL BE PLACED ON BIPAP FOR THE NIGHT. BP MODERATELY ELEVATED OTHERWISE VSS AND AFEBRILE. TELE SHOWING CONTROLLED AFIB. PPN AND LR RUNNING PER EMAR.
[2021-09-24 05:36] LABS: BASOPHILS ABSOLUTE AUTO 0.04 K/mm3 (0.00-0.23); BASOPHILS PERCENT AUTO 0 % (0-2); EOSINOPHILS PERCENT AUTO 0 % (0-6); Hemoglobin 17.3 g/dL (13.5-17.5); IMMATURE GRAN ABSOLUTE AUTO 0.22 K/mm3 (0.00-0.10); IMMATURE GRAN PERCENT AUTO 1 % (0-1); LYMPHOCYTES ABSOLUTE AUTO 0.31 K/mm3 (0.84-5.20); LYMPHOCYTES PERCENT AUTO 2 % (21-46); MONOCYTES ABSOLUTE AUTO 0.92 K/mm3 (0.16-1.47); MONOCYTES PERCENT AUTO 6 % (4-13); Mean Corpuscular HGB Conc 31.3 g/dL (31.5-36.5); Mean Corpuscular Volume 96 fL (80-100); Mean Platelet Volume 10.8 fL (9.1-12.4); NEUTROPHILS ABSOLUTE AUTO 15.12 K/mm3 (1.96-9.15); NEUTROPHILS PERCENT AUTO 91 % (41-73); Platelet Count 161 K/mm3 (150-400); RDW Standard Deviation 53.3 fL (35.1-46.3); Red Blood Cell Count 5.77 M/mm3 (4.30-5.90); White Blood Cell Count 16.61 K/mm3 (4.00-11.30)
[2021-09-24 05:59] LABS: Albumin, Blood 2.1 g/dL (3.4-5.0); Anion Gap 3 mmol/L (6-16); Blood Urea Nitrogen 71 mg/dL (8-24); Bun/Creatinine Ratio 83.4 (12.0-20.0); CO2, Blood 32 mmol/L (21-32); Calcium, Blood 9.1 mg/dL (8.5-10.1); Chloride, Blood 115 mmol/L (98-108); Creatinine, Blood 0.85 mg/dL (0.60-1.20); Glomerular Filtration Rate >60 (60-); Glucose, Blood 211 mg/dL (70-99); Magnesium, Blood 2.9 mg/dL (1.6-2.4); Phosphorus, Blood 2.9 mg/dL (2.5-4.9); Sodium, Blood 150 mmol/L (136-145); Triglycerides 240 mg/dL (30-160)
[2021-09-24 06:40] LABS: Hematocrit 55.3 % (37.0-53.0)
--- NOTE | 2021-09-24 06:46 | NUR ---
PATROL MOTHER SUMMARY PT IS AXO TO SELF AND IS AWARE OF HIS . PT AWAKE FOR MOST OF THE SHIFT CONTINUING TO ASK FOR SOMETHING TO DRINK DESPITE BEING REMINDED OF HIS NPO STATUS. VSS AND AFEBRILE. O2 SATS >90% ON 3 LNC HE REFUSED HIS BIPAP FOR MOST OF THE NIGHT. WILL REPORT TO ONCOMING RN.
--- NOTE | 2021-09-24 12:00 | NUR ---
Initial Pal Care visit made after ST reeval this am. Please see ST note. Pt working with RT trying to clear secretions when I arrived. He has a difficult time coughing secretions up and out. He appears anxious and uncomfortable intermittently t/o my visit. If asked, he will state he is not experiencing pain. Family conference held at their request to review ST findings, recommendations, goals of care and options. Present for meeting was pt, who was confused and talking about his dogs and whether I would be paying him the money I found, his , his asha and another asha on video phone call. Both daughters are nurses. We reviewed ST recommendation for NPO due to pt's inability to manage his own secretions well or any of the trialed consistencies. ST also reports that pt is unable to improve or be rehabed for safe swalling due to cognitive/memory deficits due to dementia. Pt was actively trying to get out of bed to go home during my visit. I brought copies of pt's AD and POLST to review with family. They were completed approx two years ago and confirms pt was clear at the time and she was present for their completion. I stressed to family that pt has made and documented decisions for himself outlining that he did not want tube feedings if he had an advanced progressive illness, suffering, terminal condidition or was unconscious. He stated clearly he wishes to be a DNR. Family asked that I obtain orders for code status to agree with his POLST/DNR. Options for advanced care planning discussed, including comfort care and hospice, medications for s/s management, short term nature of TPN or NG feedings, anticipated ongoing resp s/s and progression of dysphagia with advancing dementia, frailty, advanced age. Encouraged family to review pt's AD and support his stated wishes. They want to consult additional family members and let us know of planned goals/care desired. Update to RNDr on my visit. Order obtained and entered for DNR status and scheduled bedtime seroquel 25mg dose.
--- NOTE | 2021-09-24 17:35 | NUR ---
TRANSFER NOTE PT ALERT, ORIENTED x1; AGGITATED. PT IMPULSIVE AT TIMES. MAX 2 PERSON ASSIST WITH GAIT BELT AND WALKER TO RECLINER, UP IN RECLINER THIS AFTERNOON. PT REPORTS PAIN TO LEFT SHOULDER. PT DENIES CHEST PAIN, NAUSEA, DIZZINESS AND NUMB/TINGLING. SPO2 3L O2 VIA NC, LS COARSE T/O DIM IN THE BASES. COARSE BREATHING NOTED, PT HAS WEAK COUGH WHEN DIRECTED TO COUGH, BUT WHEN COUGHING TRIGGERED STRONG COUGH, PT REPORT SWALLOWING SPUTUM. TELE AFIB 80-90's; BP ELEVATED, MEDCIATED WITH HYDRALAZINE x1, NOTIFIED DR WHITTEN, NEW ORDER FOR LISINOPRIL MEDICATED x1. PT MORE AGGITATED THIS AFTERNOON, MEDCIATED WITH PRN ZYPREXA. FAMILY AT BEDSIDE FOR MAJORITY OF SHIFT. OTHER VSS. NO OTHER ACUTE CHANGES NOTED. PT TRANSFERED TO ROOM 352.
--- NOTE | 2021-09-25 05:45 | NUR ---
PT WAS WELL AGITATED AND IRRATABLE DURING SHIFT CHANGE. CHEST YODIT WAS PUT IN PLACE DUE TO THE PT CONSTANTLY TRYING TO GET OUT OF BED. PT IS AGITATED BUT COOPERATIVE TO COMMAND. PT SPEECH IS UNINTELLIGIBLE SOMETIMES, ASPIRATION RISKS ARE STILL IN PLACE. PT WAS ABLE TO CALM DOWN TOWARDS THE MIDDLE OF SHIFT AND WAS PLACED ON CPAP TO SLEEP. PT IS CURRENTLY SLEEPING PEACEFULLY WIH CPAP. PT DID NOT EXPRESS ANY PAIN OR N.V.
[2021-09-25 05:49] LABS: Anion Gap 3 mmol/L (6-16); Blood Urea Nitrogen 55 mg/dL (8-24); Bun/Creatinine Ratio 76.6 (12.0-20.0); CO2, Blood 30 mmol/L (21-32); Calcium, Blood 8.7 mg/dL (8.5-10.1); Chloride, Blood 114 mmol/L (98-108); Creatinine, Blood 0.72 mg/dL (0.60-1.20); Glomerular Filtration Rate >60 (60-); Glucose, Blood 139 mg/dL (70-99); Phosphorus, Blood 3.4 mg/dL (2.5-4.9); Potassium, Blood 4.3 mmol/L (3.5-5.5); Sodium, Blood 147 mmol/L (136-145)
--- NOTE | 2021-09-25 12:01 | NUR ---
Transition to comfort care after additional conversation with pt's and son this am. Also case conferenced with pt's , RN and Care managers re: dc plan of choice for hospice at home, once DME, Hospice and additional care available in home. Son has already contacted the [facility] to request caregivers in the home. This was passed on to Care managers for f/u. I also discussed three agencies available and hospice unit at the [facility]. is also in her 80's and unable to lift, transfer or turn pt without risk to herself. Pt's EMR reviewed. Notes indicate increased agitation and confusion yesterday afternoon and through the night, requiring krzysztof vest for safety. Upon assessment pt is more somnolent and confused midmorning, less able to verbalize and interact, even after his and son arrived. Pt received Zyprexa for agitation yesterday afternoon and Seroquel 25 mg @ bedtime last night to assist with sleep. Pt is using accessory muscles and work of breathing increased, increased upper airway secretions and audible wheeze noted. Plan per 's request discussed further. They want pt to be able to eat and have a beer with meals as he would at home. asked both me and the nurse if pt was going to get better. I explained nature of aspiration, even with NPO status as pt is not clearing his own secretions well and that it would be difficult to see improvement in this issue with advanced dementia, advanced age/frailty and inability to take in adequate nutrition. Family would like to continue IV antibiotics while pt is in the hospital unless current IV site is lost. I explained that we would no longer be starting IV's, doing testing, Labs, artificial nutrition and fluids, etc. Family verbalizes understanding. I recommend a same day hospice admission and hosp bed, OB table, BSC and home O2. I am uncertain which of these items the pt may already have in the home. CM was introduced to and plan discussed with them also. Agencies available provided but family did not indicate which one they would like at this time. Discussed goal of working on restlessness, agitation, work of breathing and pain with comfort care medications that could be administered at home prior to d/c anticipated in 1-2 days. Update to with VO obtained and entered for comfort care. RN was present for my visit in the room after my conference with first. had me update son, Ange by phone, and then he arrived and was present for bedside visit also. [phone] Family questions answered. Additional update and contact info for Ange provided to CM. Ange lives locally and has been identified as the primary contact with for d/c planning. answered
--- NOTE | 2021-09-25 18:28 | NUR ---
PATIENT WAS PLACED ON COMFORT CARE TODAY. TPN WAS STOPPED. LR WAS DISCONTINUED. FAMILY IS PRESENT WITH PATIENT ALL SHIFT. PATIENT HAD ROXINAL 5MG FOR DYPNEA AND SCOPOLAMINE PATCH WAS PLACED FOR SECRETIONS AND SUCTION IN PLACE WITH ORAL CARE X 4-5 TIMES. RESTING COMFORTABLEY IN GOOD SPIRITS AFTER LAUGHING AND VISITING WITH FAMILY.
--- NOTE | 2021-09-25 18:30 | NUR ---
PT UNABLE TO CHEW MECH SOFT DIET. PUREED DIET ORDERED PER FAMILY REQUEST. PT IS ALERT AT THIS TIME AND AGREES TO DIET CHANGE.
--- NOTE | 2021-09-26 00:45 | NUR ---
DTR rooming in Just arrived there are 8 Adult Children & of PT with advanced dementia who has been placed on Comfort care & has Hospice referral for DC to home with assist. DTR says shemay move from [place] to care for PT, several RN's in Family. PT minimally responsive did swallow 2 meds crushed in applesauce. Aspiration risk no oral intake except 1 bite with rx. On 3 l nc has IV antibiotics scheduled.
--- NOTE | 2021-09-26 02:50 | NUR ---
PT is Lynn with advanced dementia & COPD with pneumonia Hypertension & his DTR Marychuy is at bedside & supportive. Medicated for air hunger, has oxygen, not wearing BIPAP for SARAH. Roxinol 5 mg sl given after oral care with suction with helpful effect for pain & air hunger.
--- NOTE | 2021-09-26 06:35 | NUR ---
PT transitioned to comfort care yesterday & appears comfortable with current orders. 1 of 8 Children at Bedside & supportive. Has shallow breathing has SARAH, on 3 l nc.
--- NOTE | 2021-09-26 09:55 | NUR ---
Comfort care visit, case conference with RN, ANA. Pt sitting in bed surrounded by family. He looks remarkably more relaxed and comfortable with minimal work of breathing noted compared to yesterday am. informs me that they have chosen [facility] and that there is family available to move furniture and ready home for DME delivery today. This was passed on to CM working on d/c planning with family. Reviewed s/s and rx needs with pt's RN. Pt's s/s appear to be well managed with current orders per eMAR.
--- NOTE | 2021-09-26 10:16 | NUR ---
MORNING ASSESSMENT: PATIENT RESTING COMFORTABLY WITH FAMILY AT BEDSIDE. PATIENT DENIES PAIN OR SHORTNESS OF BREATH. APPEARS COMFORTABLE. ORAL CARE WITH SUCTION COMPLETED. FAMILY ALSO DENIES NEEDS AT THIS TIME. CARE MANAGEMENT IN THE ROOM TO DISCUSS DISCHARGE.
--- NOTE | 2021-09-26 19:24 | NUR ---
END OF SHIF SUMMARY: PATIENT DENIED PAIN, DISCOMFORT OR AIR HUNGER THROUGHOUT THE SHIFT. FAMILY AT BEDSIDE THROUGHOUT THE DAY. FAMILY IS SUPPORTIVE OF PATIENT AND ASSIST WITH HELPING MAKE HIS NEEDS KNOWN. PATIENT CONTINUES TO TAKE SOME PO INTAKE. PATIENT ALERT AND CONVERSING MUCH HE CAN WTIH FAMILY. FAMILY REPORTED THAT THE HOSPITAL BED HAS BEEN DELIVERED TO THE HOUSE. PATIENT IS LOOKING FORWARD TO HIS DISCHARGE TOMORROW MORNING.
--- NOTE | 2021-09-27 02:09 | NUR ---
SHIFT SUMMARY: PATIENT ON COMFORT CARE, DAUGHTER AT BEDSIDE. NOTED INCREASED SECREATIONS PRN ATROPINE GIVEN. PAIN AND DYSPNEA TREATED PER EMAR. REMAINS ON 2L O2 FOR COMFORT. WCTM.
--- NOTE | 2021-09-27 08:16 | NUR ---
PT REPOSITIONED CHANGED AND NEW LINENS AT BEGINNING OF SHIFT
[2021-09-27] MEDS ORDERED: ACET325 PO (09:57)
[2021-09-27] MEDS ORDERED: ACETAMINOPHEN PR (09:58)
[2021-09-27] MEDS ORDERED: MORP20L SL (09:59)
[2021-09-27] MEDS ORDERED: ATROPINE SULFATE2 M5 SL (09:59)
[2021-09-27] MEDS ORDERED: Ativan1 MG PO (09:59)
[2021-09-27] MEDS ORDERED: PHENERGAN25 MG PR (10:00)
[2021-09-27] MEDS ORDERED: ONDA4ODT MM (10:00)
[2021-09-27] MEDS ORDERED: OLAN5 PO (10:00)
[2021-09-27] MEDS ORDERED: TRANSDERM-SCOP1 EAC9 TOP (10:01)
--- NOTE | 2021-09-27 11:43 | NUR ---
DISCHARGE SUMMARY COMFORT CARE PT TRANSPORTED [facility]IA [facility] FOR HOSPICE CARE. IVS REMOVED PRIOR TO DISCHARGE, DISCHARGE EDUCATION REVIEWED WITH AND SIGNED BY SPOUSE OF PT. TRANSPORTED VIA GURNEY TO TRANSPORTATION VEHICLE WITH AT SIDE AND IN POSSESION OF PERSONAL BELONGINGS.
== END 2021-09-27 11:16 | disposition hospice, home (50) | DRG 177 ==
LOC: ER 15:33 → PCU 21:18 → ER 21:18 → PCU 21:20 → MEDS 09-24 18:02
PROVIDERS: Internal Medicine; Physician Assistant; ADMIT Internal Medicine
PROC: 5A09357 Assistance with Respiratory Ventilation, Less than 24 Consecutive Hours, Continuous Positive Airway Pressure (ICD-10-PCS; principal; 2021-09-17)
DX: J69.0 Pneumonitis due to inhalation of food and vomit (principal); J96.21 Acute and chronic respiratory failure with hypoxia; G93.1 Anoxic brain damage, not elsewhere classified; Z16.24 Resistance to multiple antibiotics; J90 Pleural effusion, not elsewhere classified; Z20.822 Contact with and (suspected) exposure to COVID-19; Z66 Do not resuscitate; Z51.5 Encounter for palliative care; J43.9 Emphysema, unspecified; F03.90 Unspecified dementia, unspecified severity, without behavioral disturbance, psychotic disturbance, mood disturbance, and anxiety; I48.91 Unspecified atrial fibrillation; R13.12 Dysphagia, oropharyngeal phase; B96.5 Pseudomonas (aeruginosa) (mallei) (pseudomallei) as the cause of diseases classified elsewhere; I10 Essential (primary) hypertension; E78.5 Hyperlipidemia, unspecified; G47.33 Obstructive sleep apnea (adult) (pediatric); M25.512 Pain in left shoulder; Z99.81 Dependence on supplemental oxygen; Z86.711 Personal history of pulmonary embolism; Z79.52 Long term (current) use of systemic steroids; Z79.899 Other long term (current) drug therapy; Z90.2 Acquired absence of lung [part of]; Z85.46 Personal history of malignant neoplasm of prostate; Z87.891 Personal history of nicotine dependence; Z79.01 Long term (current) use of anticoagulants
CPT/HCPCS: 0241U; 36415; 36600; 71045; 71046; 73030; 74230; 80048; 80053; 80069; 81003; 82803; 82947; 83735; 83880; 84100; 84145; 84478; 84484; 85025; 85027; 87070; 87077; 87186; 87205; 92526; 92610; 92611; 93005; 93010; 94640; 94660; 94667; 94760; 94762; 96375; 99285-25; A9270; J0360; J0692; J0696; J1650; J1940; J2185; J2543; J2920; J2930; J7030; J7050; J7120